=== PATIENT | male | born 1995 | race Caucasian/White ===

== ENCOUNTER 2024-07-24 13:33 | Outpatient (OUT) | payer OTHER, SELFPAY ==
[2024-07-24 13:58] LABS: Basophils Absolute Auto 0.1 10^3/uL (0.0-0.1); Basophils Percent Auto 0.9 % (0.2-2.0); Eosinophils Absolute Auto 0.1 10^3/uL (0.0-0.7); Eosinophils Percent Auto 1.3 % (0.9-7.0); Hematocrit 45.9 % (42.0-54.0); Hemoglobin 15.9 g/dL (14.0-18.0); Immature Granulocytes Abs Auto 0.02 10^3/uL (0.00-0.03); Immature Granulocytes Pct Auto 0.2 % (0.0-0.5); Lymphocytes Absolute Auto 3.1 10^3/uL (1.2-3.8); Lymphocytes Percent Auto 37.7 % (20.5-60.0); Mean Corpuscular HGB Conc 34.6 g/dL (29.9-35.2); Mean Corpuscular Hemoglobin 30.2 pg (25.9-34.0); Mean Corpuscular Volume 87.1 fL (80.0-94.0); Mean Platelet Volume 8.6 fL (9.5-13.5); Monocytes Absolute Auto 0.8 10^3/uL (0.3-0.8); Monocytes Percent Auto 9.9 % (1.7-12.0); Neutrophils Absolute Auto 4.1 10^3/uL (1.4-6.5); Platelet Count 307 10^3/uL (150-450); Red Blood Count 5.27 10^6/uL (4.70-6.10); Red Cell Distribution Width 11.9 % (11.0-15.0); White Blood Count 8.2 10^3/uL (4.0-11.0)
[2024-07-24 14:06] LABS: Erythrocyte Sedimentation Rate 24 mm/hr (<=15)
[2024-07-24 14:12] LABS: Alanine Aminotransferase 81 U/L (16-63); Albumin Globulin Ratio 1.2; Albumin Level 4.3 g/dL (3.4-5.0); Alkaline Phosphatase 54 U/L (46-116); Anion Gap 12.2; Aspartate Amino Transferase 34 U/L (15-37); BUN Creatinine Ratio 16.2; Bilirubin Total 0.6 mg/dL (0.2-1.0); Calcium 9.5 mg/dL (8.5-10.1); Carbon Dioxide 28.3 mmol/L (21.0-32.0); Chloride 103 mmol/L (98-107); Estimated GFR (African America >60 (>=60 mL/min/1.73m^2); Estimated GFR (Non-African Ame >60 (>=60 mL/min/1.73m^2); Globulin 3.7 g/dL; Glucose 84 mg/dL (74-106); Potassium 4.5 mmol/L (3.5-5.1); Sodium 139 mmol/L (136-145)
== END 2024-07-24 13:34 | disposition home or self-care (01) ==
LOC: LAB 13:41
PROVIDERS: PCP Nurse Practitioner; Visit Provider Internal Medicine Rheumatology
DX: M06.9 Rheumatoid arthritis, unspecified (principal); Z51.81 Encounter for therapeutic drug level monitoring
CPT/HCPCS: 36415; 80053; 85025; 85652

== ENCOUNTER 2024-11-22 10:21 | Outpatient (OUT) | payer OTHER, SELFPAY ==
--- OUTSIDE RECORDS SUMMARY | 2024-11-22 10:24 | XMS_ITS | CCD ---
Author Organization [facility] Care Team Providers Care Irrigator Valve Pipe Name Role Phone ARELY MAYEN Attending Unavailable ARELY MAYEN Consulting Unavailable ARELY MAYEN Admitting Unavailable STEFAN WALTON Primary Care Physician [phone] STEFAN WALTON Attending Unavailable STEFAN WALTON Admitting Unavailable STEFAN WALTON Admitting Unavailable STEFAN WALTON Attending Unavailable STEFAN WALTON Attending Unavailable MD Arnold Yates Attending Provider [facility] Stefan Davey Primary Care Provider Stefan Walton Primary Care Unavailable Arnold Yates Attending Unavailable Arnold Yates Admitting Unavailable Allergies Allergy Classification Reported Allergen(s) Allergy Type Date of Onset Reaction(s) Facility (1 source) Latex Drug allergy (disorder) 4 [facility] Repository (1 source) No Known Medication Allergies; Translations: [No Known Medication Allergies] Propensity to adverse reactions (disorder) [facility] Repository Problems Problem Classification Problem Date Documented Da te Episodic/Chronic Immunizations and screening for infectious disease (5 sources) Contact with and (suspected) exposure to other viral communicable diseases; Translations: [Raised antibody titer] Onset: 06-15-2020 Episodic Other nutritional; endocrine; and metabolic disorders (1 source) Body mass index 40+ - severely obese 11-20-2023 Chronic Results Test Name Value Interpretation Reference Range Facility [facility] Antinuclear Antibodieson 01-10-2024 Antinuclear Abs, IFA Positive Critically abnormal . [facility] Comment on above: Result Comment: Nega tive <1:80 Borderline 1:80 Positive >1:80 Performed By: #### T SH3, CBC, URIC, CK, CMP, ADDONUAPLUS, ESR, CRP, T4F #### [facility] [address] [place] [address] [place] #### RIMMA, RPR W RFX, THYGLOB AB, TPO #### [facility] , Homogeneous Pattern 1:80 Normal . [facility] Comment on above: Result Comment: ICAP nomenclature: [id number] Performed By: #### T SH3, CBC, URIC, CK, CMP, ADDONUAPLUS, ESR, CRP, T4F #### [facility] [address] #### RIMMA, RPR W RFX, THYGLOB AB, TPO #### [facility] , Note 1 Comment Normal . [facility] Comment on above: Result Comment: Delisa monahan Potential Disease Association Homogeneous Systemic Lupus Erythematosus, Drug Induced Systemic Lupus Erythematosus, Chronic Autoimmune hepatitis, Juvenile Idiopathic Arthritis Speckled Sjogren Syndrome, Systemic Lupus Erythematosus, Subacute Cutaneous Lupus, Lupus, Congenital Heart Block, Mixed Connective Tissue Disease, Scleroderma-diffuse, Scleroderma-Autoimmune Myositis Overlap Syndrome, Systemic Lupus Jvjtetqjlhevp-Vrwnugdhtws-Ovbvocqxkv Myositis Overlap Syndrome, Systemic Autoimmune Rheumatic Disease, Undifferentiated Connective Tissue Disease Nucleolar Systemic Sclerosis, Scleroderma-Autoimmune Myositis Overlap Syndrome, Sjogren Syndrome, Raynaud phenomenon, Pulmonary Arterial Hypertension, Systemic Autoimmune Rheumatic Disease, Cancer Centromere Scleroderma-CREST, Limited Cutaneous SSc, Raynaud's Phenomenon, Primary Biliary Cholangitis Nuclear Dot Primary Biliary Cholangitis Nuclear Primary Biliary Cholangitis, Autoimmune Membrane Hepatitis/Liver disease, Systemic Autoimmune Rheumatic Disease, Autoimmune Cytopenias, Linear Scleroderma, Antiphospholipid Syndrome Performed at: - [facility] [address] [id number] It Operations Specialist: Alejandro Etienne PhD, Phone: [phone] Performed By: #### T SH3, CBC, URIC, CK, CMP, ADDONUAPLUS, ESR, CRP, T4F #### [facility] [address] #### RIMMA, RPR W RFX, THYGLOB AB, TPO #### [facility] , Alanine aminotransferase [En zymatic activity/volume] in Serum or PlasmaOrdered By: Arnold Yates on 01-10-2024 ALT [Catalytic activity/Vol] 43 U/L Normal 7-52 [facility] Comment on above: Performed By: #### T SH3, CBC, URIC, CK, CMP, ADDONUAPLUS, ESR, CRP, T4F #### [facility] [address] [place] [address] [place] #### RIMMA, RPR W RFX, THYGLOB AB, TPO #### [facility] , Albumin [Mass/volume] in Ser um or Plasma by Bromocresol green (BCG) dye binding methoOrdered By: Arnold Yates on 01-10-2024 Albumin BCG dye [Mass/Vol] 4.7 g/dL 3.5-5.7 [facility] Alkaline phosphatase [Enzyma tic activity/volume] in Serum or PlasmaOrdered By: Arnold Yates on 01-10-2024 ALP [Catalytic activity/Vol] 39 U/L Normal 34-104 [facility] Comment on above: Performed By: #### T SH3, CBC, URIC, CK, CMP, ADDONUAPLUS, ESR, CRP, T4F #### [facility] [address] [place] [address] #### RIMMA, RPR W RFX, THYGLOB AB, TPO #### [facility] , Antithyroglobulin Abon 01-09 Antithyroglobulin Ab <1.0 Normal 0.0-0.9 [facility] Comment on above: Result Comment: Thyr oglobulin Antibody measured by [employer] Method[employer] It should be noted that the presence of thyroglobulin antibodies may not be pathogenic nor diagnostic, especially at very low levels. The assay telecom field technician has found that four percent of individuals without evidence of thyroid disease or autoimmunity will have positive TgAb levels up to 4 IU/mL. Performed at: [address] [id number] It Operations Specialist: Alejandro Etienne PhD, Phone: [phone] Performed By: #### T SH3, CBC, URIC, CK, CMP, ADDONUAPLUS, ESR, CRP, T4F #### [facility] [address] [place] [address] [place] #### RIMMA, RPR W RFX, THYGLOB AB, TPO #### [facility] , Aspartate aminotransferase [ Enzymatic activity/volume] in Serum or PlasmaOrdered By: Arnold Yates on 01-10-2024 AST [Catalytic activity/Vol] 23 U/L Normal 13-39 [facility] Comment on above: Performed By: #### T SH3, CBC, URIC, CK, CMP, ADDONUAPLUS, ESR, CRP, T4F #### [facility] [address] [place] [address] #### RIMMA, RPR W RFX, THYGLOB AB, TPO #### [facility] , Automated basophil %Ordered By: Arnold Yates on 01-10-2024 Basophils/100 WBC (Bld) 0.7 % Normal . [facility] Comment on above: Performed By: #### T SH3, CBC, URIC, CK, CMP, ADDONUAPLUS, ESR, CRP, T4F #### [facility] [address] [place] [address] #### RIMMA, RPR W RFX, THYGLOB AB, TPO #### [facility] , Automated basophil countOrde red By: Arnold Yates on 01-10-2024 Basophils (Bld) [#/Vol] 0.1 10*3/uL Normal 0.0-0.2 [facility] Comment on above: Performed By: #### T SH3, CBC, URIC, CK, CMP, ADDONUAPLUS, ESR, CRP, T4F #### [facility] [address] [place] [address] #### RIMMA, RPR W RFX, THYGLOB AB, TPO #### [facility] , Automated blood monocyte cou ntOrdered By: Arnold Yates on 01-10-2024 Monocytes (Bld) [#/Vol] 0.8 10*3/uL Normal 0.0-0.8 [facility] Comment on above: Performed By: #### T SH3, CBC, URIC, CK, CMP, ADDONUAPLUS, ESR, CRP, T4F #### [facility] [address] [place] [address] #### RIMMA, RPR W RFX, THYGLOB AB, TPO #### [facility] , Automated eosinophil %Ordere d By: Arnold Yates on 01-10-2024 Eosinophils/100 WBC (Bld) 1.0 % Normal . [facility] Comment on above: Performed By: #### T SH3, CBC, URIC, CK, CMP, ADDONUAPLUS, ESR, CRP, T4F #### [address] #### RIMMA, RPR W RFX, THYGLOB AB, TPO #### [facility] , Automated eosinophil countOr dered By: Arnold Yates on 01-10-2024 Eosinophils (Bld) [#/Vol] 0.1 10*3/uL Normal 0.0-0.45 [facility] Comment on above: Performed By: #### T SH3, CBC, URIC, CK, CMP, ADDONUAPLUS, ESR, CRP, T4F #### [address] #### RIMMA, RPR W RFX, THYGLOB AB, TPO #### [facility] , Automated monocyte %Ordered By: Arnold Yates on 01-10-2024 Monocytes/100 WBC (Bld) 10.5 % Normal . [facility] Comment on above: Performed By: #### T SH3, CBC, URIC, CK, CMP, ADDONUAPLUS, ESR, CRP, T4F #### [place] [address] [place] #### RIMMA, RPR W RFX, THYGLOB AB, TPO #### [facility] , Automated neutrophil %Ordere d By: Arnold Yates on 01-10-2024 Neutrophils/100 WBC (Bld) 59.1 % Normal . [facility] Comment on above: Performed By: #### T SH3, CBC, URIC, CK, CMP, ADDONUAPLUS, ESR, CRP, T4F #### [address] #### RIMMA, RPR W RFX, THYGLOB AB, TPO #### [facility] , Bacteria [Presence] in Urine by AutomatedOrdered By: Arnold Yates on 01-10-2024 Bacteria Auto Ql (U) None seen [HPF] None Seen [facility] Bilirubin Test strip Ql (U)O rdered By: Arnold Yates on 01-10-2024 Bilirubin Ql (U) Negative Negative [facility] Bilirubin.total [Mass/volume ] in Serum or PlasmaOrdered By: Arnold Yates on 01-10-2024 Bilirubin [Mass/Vol] 0.7 mg/dL Normal 0.3-1.0 [facility] Comment on above: Performed By: #### T SH3, CBC, URIC, CK, CMP, ADDONUAPLUS, ESR, CRP, T4F #### [facility] [address] [place] [address] [place] #### RIMMA, RPR W RFX, THYGLOB AB, TPO #### [facility] , C reactive protein [Mass/vol ume] in Serum or PlasmaOrdered By: Arnold Urrutiarow on 01-10-2024 CRP [Mass/Vol] 1.5 mg/dL High 0.0-0.5 [facility] C-Reactive Proteinon 024 C-Reactive Protein 1.5 mg/dL High 0.0-0.5 [facility] Comment on above: Performed By: #### T SH3, CBC, URIC, CK, CMP, ADDONUAPLUS, ESR, CRP, T4F #### [facility] [address] [place] [address] [place] #### RIMMA, RPR W RFX, THYGLOB AB, TPO #### [facility] , Calcium [Mass/volume] in Ser um or PlasmaOrdered By: Arnold Trudy on 01-10-2024 Calcium [Mass/Vol] 10.4 mg/dL High 8.6-10.3 [facility] Comment on above: Performed By: #### T SH3, CBC, URIC, CK, CMP, ADDONUAPLUS, ESR, CRP, T4F #### [facility] [address] [place] [address] [place] #### RIMMA, RPR W RFX, THYGLOB AB, TPO #### [facility] , Carbon dioxide, total [Moles /volume] in Serum or PlasmaOrdered By: Arnold Yates on 01-10-2024 CO2 [Moles/Vol] 27.0 mmol/L Normal 21.0-31.0 [facility] Comment on above: Performed By: #### T SH3, CBC, URIC, CK, CMP, ADDONUAPLUS, ESR, CRP, T4F #### [facility] [address] #### RIMMA, RPR W RFX, THYGLOB AB, TPO #### [facility] , Chloride [Moles/volume] in S scott or PlasmaOrdered By: Arnold Urrutiarow on 01-10-2024 Chloride [Moles/Vol] 104 mmol/L Normal 98-107 [facility] Comment on above: Performed By: #### T SH3, CBC, URIC, CK, CMP, ADDONUAPLUS, ESR, CRP, T4F #### [facility] [address] [place] [address] #### RIMMA, RPR W RFX, THYGLOB AB, TPO #### [facility] , Color of Urine by AutoOrdere d By: Arnold Urrutiarow on 01-10-2024 Color (U) Light-yellow Normal Yellow [facility] Comment on above: Order Comment: Name Collection Type:: Clean-Voided Midstream Performed By: #### T SH3, CBC, URIC, CK, CMP, ADDONUAPLUS, ESR, CRP, T4F #### [facility] [address] [place] [address] [place] #### RIMMA, RPR W RFX, THYGLOB AB, TPO #### [facility] , Complete Blood Count Auto Di ffon 01-10-2024 Mean Corpuscular HGB Conc 34.4 g/dL Normal 32.5-35.6 [facility] Comment on above: Performed By: #### T SH3, CBC, URIC, CK, CMP, ADDONUAPLUS, ESR, CRP, T4F #### [place] [address] [place] #### RIMMA, RPR W RFX, THYGLOB AB, TPO #### [facility] , NRBC% 0.3 /100{WBC} Normal 0-0.5 [facility] Comment on above: Performed By: #### T SH3, CBC, URIC, CK, CMP, ADDONUAPLUS, ESR, CRP, T4F #### [address] #### RIMMA, RPR W RFX, THYGLOB AB, TPO #### [facility] , Comprehensive Metabolic Pane vidhi 01-10-2024 Albumin [Mass/Vol] 4.7 g/dL Normal 3.5-5.7 [facility] Comment on above: Performed By: #### T SH3, CBC, URIC, CK, CMP, ADDONUAPLUS, ESR, CRP, T4F #### [address] #### RIMMA, RPR W RFX, THYGLOB AB, TPO #### [facility] , GFR/1.73 sq M.predicted MDRD (S/P/Bld) [Vol rate/Area] mL/min/{1.73_m2} Normal [facility] Comment on above: Performed By: #### T SH3, CBC, URIC, CK, CMP, ADDONUAPLUS, ESR, CRP, T4F #### [place] [address] [place] #### RIMMA, RPR W RFX, THYGLOB AB, TPO #### [facility] , Creatine kinase [Enzymatic a ctivity/volume] in Serum or PlasmaOrdered By: Arnold Yates on 01-10-2024 CK [Catalytic activity/Vol] 87 U/L Normal 30-223 [facility] Comment on above: Result Comment: PERF ORMED BY: [place] [address] PATHOLOGIST SCREW EYE ASSEMBLER PRUDENCE SIEGEL M.D. Performed By: #### T SH3, CBC, URIC, CK, CMP, ADDONUAPLUS, ESR, CRP, T4F #### [address] #### RIMMA, RPR W RFX, THYGLOB AB, TPO #### [facility] , Creatinine [Mass/volume] in Serum or PlasmaOrdered By: Arnold Yates on 01-10-2024 Creatinine [Mass/Vol] 0.89 mg/dL Normal 0.70-1.30 [facility] Comment on above: Performed By: #### T SH3, CBC, URIC, CK, CMP, ADDONUAPLUS, ESR, CRP, T4F #### [address] #### RIMMA, RPR W RFX, THYGLOB AB, TPO #### [facility] , Dipstick and Microscopicon 0 01-10-2024 Bacteria,Urine None Seen Normal None Seen [facility] Comment on above: Order Comment: Name Collection Type:: Clean-Voided Midstream Performed By: #### T SH3, CBC, URIC, CK, CMP, ADDONUAPLUS, ESR, CRP, T4F #### [address] #### RIMMA, RPR W RFX, THYGLOB AB, TPO #### [facility] , Bilirubin,Urine Negative Normal Negative [facility] Comment on above: Order Comment: Name Collection Type:: Clean-Voided Midstream Performed By: #### T SH3, CBC, URIC, CK, CMP, ADDONUAPLUS, ESR, CRP, T4F #### [place] [address] [place] #### RIMMA, RPR W RFX, THYGLOB AB, TPO #### [facility] , Glucose Ql (U) Normal Normal Normal [facility] Comment on above: Order Comment: Name Collection Type:: Clean-Voided Midstream Performed By: #### T SH3, CBC, URIC, CK, CMP, ADDONUAPLUS, ESR, CRP, T4F #### [address] #### RIMMA, RPR W RFX, THYGLOB AB, TPO #### [facility] , Hyaline Casts,Urine 0-8 Normal 0-8 [facility] Comment on above: Order Comment: Name Collection Type:: Clean-Voided Midstream Performed By: #### T SH3, CBC, URIC, CK, CMP, ADDONUAPLUS, ESR, CRP, T4F #### [address] #### RIMMA, RPR W RFX, THYGLOB AB, TPO #### [facility] , Mucus,Urine Rare Normal [facility] Comment on above: Order Comment: Name Collection Type:: Clean-Voided Midstream Result Comment: PERF ORMED BY: [place] [address] PATHOLOGIST SCREW EYE ASSEMBLER PRUDENCE SIEGEL M.D. Performed By: #### T SH3, CBC, URIC, CK, CMP, ADDONUAPLUS, ESR, CRP, T4F #### [address] #### RIMMA, RPR W RFX, THYGLOB AB, TPO #### [facility] , Nitrite,Urine Negative Normal Negative [facility] Comment on above: Order Comment: Name Collection Type:: Clean-Voided Midstream Performed By: #### T SH3, CBC, URIC, CK, CMP, ADDONUAPLUS, ESR, CRP, T4F #### [address] #### RIMMA, RPR W RFX, THYGLOB AB, TPO #### [facility] , Occult Blood,Urine Negative Normal Negative [facility] Comment on above: Order Comment: Name Collection Type:: Clean-Voided Midstream Performed By: #### T SH3, CBC, URIC, CK, CMP, ADDONUAPLUS, ESR, CRP, T4F #### [address] #### RIMMA, RPR W RFX, THYGLOB AB, TPO #### [facility] , Protein,Urine Negative Normal Negative [facility] Comment on above: Order Comment: Name Collection Type:: Clean-Voided Midstream Performed By: #### T SH3, CBC, URIC, CK, CMP, ADDONUAPLUS, ESR, CRP, T4F #### [address] #### RIMMA, RPR W RFX, THYGLOB AB, TPO #### [facility] , RBC,Urine 1-2 Normal 0-4 [facility] Comment on above: Order Comment: Name Collection Type:: Clean-Voided Midstream Performed By: #### T SH3, CBC, URIC, CK, CMP, ADDONUAPLUS, ESR, CRP, T4F #### [address] #### RIMMA, RPR W RFX, THYGLOB AB, TPO #### [facility] , Specificy [place],Urine 1.021 Normal 1.001-1.030 [facility] Comment on above: Order Comment: Name Collection Type:: Clean-Voided Midstream Performed By: #### T SH3, CBC, URIC, CK, CMP, ADDONUAPLUS, ESR, CRP, T4F #### [address] #### RIMMA, RPR W RFX, THYGLOB AB, TPO #### [facility] , Squamous Epithelial Cell,Urine 1-2 Normal 0-2 [facility] Comment on above: Order Comment: Name Collection Type:: Clean-Voided Midstream Performed By: #### T SH3, CBC, URIC, CK, CMP, ADDONUAPLUS, ESR, CRP, T4F #### [address] #### RIMMA, RPR W RFX, THYGLOB AB, TPO #### [facility] , Urobilinogen,Urine Normal Normal Normal [facility] Comment on above: Order Comment: Name Collection Type:: Clean-Voided Midstream Performed By: #### T SH3, CBC, URIC, CK, CMP, ADDONUAPLUS, ESR, CRP, T4F #### [place] [address] [place] #### RIMMA, RPR W RFX, THYGLOB AB, TPO #### [facility] , WBC,Urine 5-9 High 0-4 [facility] Comment on above: Order Comment: Name Collection Type:: Clean-Voided Midstream Performed By: #### T SH3, CBC, URIC, CK, CMP, ADDONUAPLUS, ESR, CRP, T4F #### [address] #### RIMMA, RPR W RFX, THYGLOB AB, TPO #### [facility] , Epithelial cells.squamous [# /area] in Urine sediment by Automated countOrdered By: Arnold Yates on 01-10-2024 Epithelial cells.squamous Auto (Urine sed) [#/Area] 1-2 [HPF] 0-2 [facility] Erythrocyte Sedimentation Ra vanesa 01-10-2024 ESR (Bld) [Velocity] 28 mm/h High 0-14 [facility] Comment on above: Result Comment: PERF ORMED BY: [place] [address] PATHOLOGIST SCREW EYE ASSEMBLER PRUDENCE SIEGEL M.D. Performed By: #### T SH3, CBC, URIC, CK, CMP, ADDONUAPLUS, ESR, CRP, T4F #### [place] [address] [place] #### RIMMA, RPR W RFX, THYGLOB AB, TPO #### [facility] , Erythrocyte distribution wid th [Ratio] by Automated countOrdered By: Arnold Yates on 01-10-2024 Erythrocyte distribution width (RBC) [Ratio] 12.3 % Normal 12.0-14.8 [facility] Comment on above: Performed By: #### T SH3, CBC, URIC, CK, CMP, ADDONUAPLUS, ESR, CRP, T4F #### [facility] [address] [place] [address] [place] #### RIMMA, RPR W RFX, THYGLOB AB, TPO #### [facility] , Erythrocyte sedimentation ra te by Photometric methodOrdered By: Arnold Yates on 01-10-2024 ESR Photometric method (Bld) [Velocity] 28 mm/hr High 0-14 [facility] Erythrocytes [#/area] in Uri ne sediment by Automated countOrdered By: Arnold Yates on 01-10-2024 RBC Auto (Urine sed) [#/Area] 1-2 [HPF] 0-4 [facility] Erythrocytes [#/volume] in B lood by Automated countOrdered By: Arnold Yates on 01-10-2024 RBC (Bld) [#/Vol] 5.35 10*6/uL Normal 3.90-5.60 [facility] Comment on above: Performed By: #### T SH3, CBC, URIC, CK, CMP, ADDONUAPLUS, ESR, CRP, T4F #### [facility] [address] [place] [address] [place] #### RIMMA, RPR W RFX, THYGLOB AB, TPO #### [facility] , Glucose [Mass/volume] in Ser um or PlasmaOrdered By: Arnold Yates on 01-10-2024 Glucose [Mass/Vol] 109 mg/dL High 70-100 [facility] Comment on above: ADA recommended refe rence rangeRandom Glucose Reference Range is dependent on time and content of last meal. Glucose of more than 200 mg/dL in a nonstressed, ambulatory subject supports the diagnosis of Diabetes Mellitus. Result Comment: [place] om Glucose Reference Range is dependent on time and content of last meal. Glucose of more than 200 mg/dL in a nonstressed, ambulatory subject supports the diagnosis of Diabetes Mellitus. ADA recommended reference range Performed By: #### T SH3, CBC, URIC, CK, CMP, ADDONUAPLUS, ESR, CRP, T4F #### [address] #### RIMMA, RPR W RFX, THYGLOB AB, TPO #### [facility] , Glucose [Mass/volume] in Uri ne by Test stripOrdered By: Arnold Yates on 01-10-2024 Glucose Test strip (U) [Mass/Vol] Normal mg/dL Normal [facility] Hematocrit [Volume Fraction] of Blood by Automated countOrdered By: Arnold Yates on 01-10-2024 Hematocrit (Bld) [Volume fraction] 45.9 % Normal 38.8-50.0 [facility] Comment on above: Performed By: #### T SH3, CBC, URIC, CK, CMP, ADDONUAPLUS, ESR, CRP, T4F #### [address] #### RIMMA, RPR W RFX, THYGLOB AB, TPO #### [facility] , Hemoglobin Test strip Ql (U) Ordered By: Arnold Yates on 01-10-2024 Hemoglobin Ql (U) Negative Negative [facility] Hemoglobin [Mass/volume] in BloodOrdered By: Arnold Yates on 01-10-2024 Hemoglobin (Bld) [Mass/Vol] 15.8 g/dL Normal 13.0-17.0 [facility] Comment on above: Performed By: #### T SH3, CBC, URIC, CK, CMP, ADDONUAPLUS, ESR, CRP, T4F #### [place] [address] [place] #### RIMMA, RPR W RFX, THYGLOB AB, TPO #### [facility] , Hyaline casts [#/area] in Ur ine sediment by Automated countOrdered By: Arnold Yates on 01-10-2024 Hyaline casts Auto (Urine sed) [#/Area] 0-8 [LPF] 0-8 [facility] Ketones [Presence] in Urine by Test stripOrdered By: Arnold Yates on 01-10-2024 Ketones Ql (U) Negative Normal Negative [facility] Comment on above: Order Comment: Name Collection Type:: Clean-Voided Midstream Performed By: #### T SH3, CBC, URIC, CK, CMP, ADDONUAPLUS, ESR, CRP, T4F #### [facility] [address] [place] [address] #### RIMMA, RPR W RFX, THYGLOB AB, TPO #### [facility] , Leukocyte esterase [Presence ] in Urine by Test stripOrdered By: Arnold Yates on 01-10-2024 Leukocyte esterase Test strip Ql (U) Negative Normal Negative [facility] Comment on above: Order Comment: Name Collection Type:: Clean-Voided Midstream Performed By: #### T SH3, CBC, URIC, CK, CMP, ADDONUAPLUS, ESR, CRP, T4F #### [facility] [address] [place] [address] #### RIMMA, RPR W RFX, THYGLOB AB, TPO #### [facility] , Leukocytes [#/area] in Urine sediment by Automated countOrdered By: Arnold Yates on 01-10-2024 WBC Auto (Urine sed) [#/Area] 5-9 [HPF] High 0-4 [facility] Leukocytes [#/volume] correc jacinto for nucleated erythrocytes in Blood by Automated counOrdered By: Arnold Yates on 01-10-2024 WBC corrected for nucl RBC Auto (Bld) [#/Vol] 8.0 10*3/uL 4.1-10.5 [facility] Leukocytes [#/volume] in Blo od by Automated countOrdered By: Arnold Yates on 01-10-2024 WBC (Bld) [#/Vol] 8.0 10*3/uL Normal 4.1-10.5 [facility] Comment on above: Performed By: #### T SH3, CBC, URIC, CK, CMP, ADDONUAPLUS, ESR, CRP, T4F #### [facility] [address] [place] [address] #### RIMMA, RPR W RFX, THYGLOB AB, TPO #### [facility] , Lymphocytes [#/volume] in Bl ood by Automated countOrdered By: Arnold Yates on 01-10-2024 Lymphocytes (Bld) [#/Vol] 2.3 10*3/uL Normal 1.00-4.8 [facility] Comment on above: Performed By: #### T SH3, CBC, URIC, CK, CMP, ADDONUAPLUS, ESR, CRP, T4F #### [address] #### RIMMA, RPR W RFX, THYGLOB AB, TPO #### [facility] , Lymphocytes/100 leukocytes i n Blood by Automated countOrdered By: Arnold Yates on 01-10-2024 Lymphocytes/100 WBC (Bld) 28.7 % Normal . [facility] Comment on above: Performed By: #### T SH3, CBC, URIC, CK, CMP, ADDONUAPLUS, ESR, CRP, T4F #### [address] #### RIMMA, RPR W RFX, THYGLOB AB, TPO #### [facility] , MCH [Entitic mass] by Automa jacinto countOrdered By: Arnold Yates on 01-10-2024 MCH (RBC) [Entitic mass] 29.5 pg Normal 27.5-35.2 [facility] Comment on above: Performed By: #### T SH3, CBC, URIC, CK, CMP, ADDONUAPLUS, ESR, CRP, T4F #### [address] #### RIMMA, RPR W RFX, THYGLOB AB, TPO #### [facility] , MCHC Auto (RBC) [Mass/Vol]Or dered By: Arnold Yates on 01-10-2024 MCHC (RBC) [Mass/Vol] 34.4 g/dL 32.5-35.6 [facility] MCV [Entitic volume] by Auto mated countOrdered By: Arnold Yates on 01-10-2024 MCV (RBC) [Entitic vol] 85.8 fL Normal 83.5-101 F [facility] Comment on above: Performed By: #### T SH3, CBC, URIC, CK, CMP, ADDONUAPLUS, ESR, CRP, T4F #### [facility] [address] [place] [address] [place] #### RIMMA, RPR W RFX, THYGLOB AB, TPO #### [facility] , Mucus [Presence] in Urine by AutomatedOrdered By: Arnold Yates on 01-10-2024 Mucus Auto Ql (U) Rare [LPF] [facility] Neutrophils [#/volume] in Bl ood by Automated countOrdered By: Arnold Yates on 01-10-2024 Neutrophils (Bld) [#/Vol] 4.7 10*3/uL Normal 1.8-7.7 [facility] Comment on above: Performed By: #### T SH3, CBC, URIC, CK, CMP, ADDONUAPLUS, ESR, CRP, T4F #### [facility] [address] [place] [address] [place] #### RIMMA, RPR W RFX, THYGLOB AB, TPO #### [facility] , Nitrite Test strip Ql (U)Ord ered By: Arnold Yates on 01-10-2024 Nitrite Ql (U) Negative Negative [facility] No Panel InformationOrdered By: Arnold Yates on 01-10-2024 Estimated GFR (CKD-EPI) > 60.0 mL/Min [facility] Creatinine Clearance (Chem N/A [facility] Nucleated erythrocytes [Pres ence] in Blood by Automated countOrdered By: Arnold Yates on 01-10-2024 Nucleated RBC Auto Ql (Bld) 0.3 /100{WBC} 0-0.5 [facility] Platelet mean volume [Entiti c volume] in Blood by Automated countOrdered By: Arnold Yates on 01-10-2024 Platelet mean volume (Bld) [Entitic vol] 6.9 fL Normal 6.6-10.1 [facility] Comment on above: Performed By: #### T SH3, CBC, URIC, CK, CMP, ADDONUAPLUS, ESR, CRP, T4F #### [facility] [address] [place] [address] #### RIMMA, RPR W RFX, THYGLOB AB, TPO #### [facility] , Platelets [#/volume] in Bloo d by Automated countOrdered By: Arnold Yates on 01-10-2024 Platelets (Bld) [#/Vol] 377 10*3/uL Normal 150-450 [facility] Comment on above: Performed By: #### T SH3, CBC, URIC, CK, CMP, ADDONUAPLUS, ESR, CRP, T4F #### [address] #### RIMMA, RPR W RFX, THYGLOB AB, TPO #### [facility] , Potassium [Moles/volume] in Serum or PlasmaOrdered By: Arnold Yates on 01-10-2024 Potassium [Moles/Vol] 3.9 mmol/L Normal 3.5-5.1 [facility] Comment on above: Performed By: #### T SH3, CBC, URIC, CK, CMP, ADDONUAPLUS, ESR, CRP, T4F #### [place] [address] [place] #### RIMMA, RPR W RFX, THYGLOB AB, TPO #### [facility] , Protein Test strip (U) [Mass /Vol]Ordered By: Arnold Yates on 01-10-2024 Protein (U) [Mass/Vol] Negative Negative [facility] Protein [Mass/volume] in Ser um or PlasmaOrdered By: Arnold Yates on 01-10-2024 Protein [Mass/Vol] 8.2 g/dL Normal 6.4-8.9 [facility] Comment on above: Performed By: #### T SH3, CBC, URIC, CK, CMP, ADDONUAPLUS, ESR, CRP, T4F #### [facility] [address] [place] [address] #### RIMMA, RPR W RFX, THYGLOB AB, TPO #### [facility] , RPR w/rfx to Quant TP Abson 01-10-2024 RPR, Rfx Quant RPR Non-Reactive Normal Non Reactive [facility] Comment on above: Result Comment: Perf ormed at: CB - [facility] [address] [id number] It Operations Specialist: Alejandro Etienne PhD, Phone: [phone] PERFORMED BY: [place] [address] PATHOLOGIST SCREW EYE ASSEMBLER PRUDENCE SIEGEL M.D. Performed By: #### T SH3, CBC, URIC, CK, CMP, ADDONUAPLUS, ESR, CRP, T4F #### [facility] [address] [place] [address] #### RIMMA, RPR W RFX, THYGLOB AB, TPO #### [facility] , Serum globulin measurement b y calculation (mass/volume)Ordered By: Arnold Yates on 01-10-2024 Globulin (S) [Mass/Vol] 3.5 g/dL Normal [facility] Comment on above: Performed By: #### T SH3, CBC, URIC, CK, CMP, ADDONUAPLUS, ESR, CRP, T4F #### [facility] [address] [place] [address] #### RIMMA, RPR W RFX, THYGLOB AB, TPO #### [facility] , Serum or plasma albumin/glob ulin mass ratioOrdered By: Arnold Yates on 01-10-2024 Albumin/Globulin [Mass ratio] 1.3 {ratio} Normal [facility] Comment on above: Performed By: #### T SH3, CBC, URIC, CK, CMP, ADDONUAPLUS, ESR, CRP, T4F #### [facility] [address] [place] [address] #### RIMMA, RPR W RFX, THYGLOB AB, TPO #### [facility] , Serum or plasma anion gap de terminationOrdered By: Arnold Yates on 01-10-2024 Anion gap [Moles/Vol] 10.9 mmol/L Normal 6.0-15.0 [facility] Comment on above: Performed By: #### T SH3, CBC, URIC, CK, CMP, ADDONUAPLUS, ESR, CRP, T4F #### [address] #### RIMMA, RPR W RFX, THYGLOB AB, TPO #### [facility] , Sodium [Moles/volume] in Ser um or PlasmaOrdered By: Arnold Yates on 01-10-2024 Sodium [Moles/Vol] 138 mmol/L Normal 136-145 [facility] Comment on above: Performed By: #### T SH3, CBC, URIC, CK, CMP, ADDONUAPLUS, ESR, CRP, T4F #### [address] #### RIMMA, RPR W RFX, THYGLOB AB, TPO #### [facility] , Specific gravity Test strip (U) [Rel density]Ordered By: Arnold Yates on 01-10-2024 Specific gravity (U) [Rel density] 1.021 1.001-1.030 [facility] Thyroid Peroxidase Antibodie son 01-10-2024 Thyroid Peroxidase Antibodies 12 Normal 0-34 [facility] Comment on above: Result Comment: Perf ormed at: CB - [facility] [address] [id number] It Operations Specialist: Alejandro Etienne PhD, Phone: [phone] Performed By: #### T SH3, CBC, URIC, CK, CMP, ADDONUAPLUS, ESR, CRP, T4F #### [address] #### RIMMA, RPR W RFX, THYGLOB AB, TPO #### [facility] , Thyrotropin [Units/volume] i n Serum or PlasmaOrdered By: Arnold Yates on 01-10-2024 TSH Qn 4.09 m[IU]/L Normal 0.45-5.33 [facility] Comment on above: Result Comment: PERF ORMED BY: [place] [address] PATHOLOGIST SCREW EYE ASSEMBLER PRUDENCE SIEGEL M.D. Performed By: #### T SH3, CBC, URIC, CK, CMP, ADDONUAPLUS, ESR, CRP, T4F #### [address] #### RIMMA, RPR W RFX, THYGLOB AB, TPO #### [facility] , Thyroxine (T4) free [Mass/vo lume] in Serum or PlasmaOrdered By: Arnold Yates on 01-10-2024 Free T4 [Mass/Vol] 0.74 ng/dL Normal 0.61-1.12 [facility] Comment on above: Performed By: #### T SH3, CBC, URIC, CK, CMP, ADDONUAPLUS, ESR, CRP, T4F #### [place] [address] [place] #### RIMMA, RPR W RFX, THYGLOB AB, TPO #### [facility] , Urate [Mass/volume] in Serum or PlasmaOrdered By: Arnold Yates on 01-10-2024 Urate [Mass/Vol] 7.7 mg/dL High 4.4-7.6 [facility] Comment on above: Performed By: #### T SH3, CBC, URIC, CK, CMP, ADDONUAPLUS, ESR, CRP, T4F #### [place] [address] [place] #### RIMMA, RPR W RFX, THYGLOB AB, TPO #### [facility] , Urea nitrogen [Mass/volume] in Serum or PlasmaOrdered By: Arnold Yates on 01-10-2024 Urea nitrogen [Mass/Vol] 16 mg/dL Normal 7-25 [facility] Comment on above: Performed By: #### T SH3, CBC, URIC, CK, CMP, ADDONUAPLUS, ESR, CRP, T4F #### [address] #### RIMMA, RPR W RFX, THYGLOB AB, TPO #### [facility] , Urine appearanceOrdered By: Arnold Yates on 01-10-2024 Appearance (U) Clear Normal Clear [facility] Comment on above: Order Comment: Name Collection Type:: Clean-Voided Midstream Performed By: #### T SH3, CBC, URIC, CK, CMP, ADDONUAPLUS, ESR, CRP, T4F #### [address] #### RIMMA, RPR W RFX, THYGLOB AB, TPO #### [facility] , Urobilinogen Test strip (U) [Mass/Vol]Ordered By: Arnold Yates on 01-10-2024 Urobilinogen (U) [Mass/Vol] Normal mg/dL Normal [facility] XR wrist BI 2Von 01-10-2024 XR wrist BI 2V [facility] [address] XRay Report Signed Patient: Arnold Pulliam MR#: [id number] : 1995 Acct:[id number] Age/Sex: 28 / M ADM Date: 01/10/24 Loc: ICXD Room: Type: [facility] Attending Dr: Arnold Yates MD Copies to: Arnold Yates MD Ordering Provider: Arnold Yates MD Date of Service: 01/10/24 XR/XR wrist BI 2V: PAIN ([id number]) XR/XR hand BI 2V: PAIN BILATERAL HAND - 2 views each, bilateral wrist series 2 views each REASON FOR EXAM: Bilateral wrist and hand pain with joint swelling for 8 weeks. COMPARISON: None FINDINGS: Right hand/wrist: No focal soft tissue abnormality. Joint spaces of the hand and wrist appear maintained without bony erosions. No acute bony process. Left hand/wrist: No focal soft tissue abnormality. Joint spaces of the hand and wrist appear maintained without bony erosions. No acute bony process. XR/XR hand BI 2V IMPRESSION: NO ACUTE BONY PROCESS. Impression dictated by: Danny Baker Jr., D.O.01/10/2024 2:17 PM Dictation Location: [place] [address] Transcribed By: [facility] 01/10/24 1417 Dictated By: Danny Baker Jr, DO 01/10/24 1416 Signed By: 01/10/24 1417 Normal [facility] pH of Urine by Test stripOrd ered By: Arnold Yates on 01-10-2024 pH (U) 6.0 [pH] Normal 5.0-9.0 [facility] Comment on above: Order Comment: Name Collection Type:: Clean-Voided Midstream Performed By: #### T SH3, CBC, URIC, CK, CMP, ADDONUAPLUS, ESR, CRP, T4F #### [facility] [address] [place] [address] #### RIMMA, RPR W RFX, THYGLOB AB, TPO #### [facility] , Physician Referralon 024 Physician Referral [id number] Normal [facility] RIMMA w/Reflex if POSon 2023 Nuclear Ab Ql (S) Negative Invalid Interpretation Code Negative [facility] Comment on above: Result Comment: Perf ormed at: CB [facility] [address] [id number] PhD Jaimie Allen Performed By: #### 1 [id number] #### [facility] [address] [place] [address] RF Quanton 11-22-2023 Rheumatoid factor Qn 21.6 International_Unit/ mL High <14.0 [facility] Comment on above: Result Comment: Perf ormed at: [facility] [address] [id number] PhD Cherriegerald Alejandro Performed By: #### 1 [id number] #### [facility] [address] [place] [address] Ambulatory Visit Summaryon 0 11-20-2023 Ambulatory Visit Summary ARNOLD PULLIAM :1995 Visit Date:11/20/2023 Ambulatory Visit Instructions Your Diagnosis Pain in joints Encounter to establish care BMI 45.0-49.9, adult Your Care Team Attending Physician - STEFAN WALTON CNP Primary Care Physician - STEFAN WALTON CNP Discharge Vitals Temperature (Temporal Artery) 36.7 ?C Heart Rate (Peripheral) 87 Respiratory Rate 15 Blood Pressure 118/75 Height 182 cm Height 72 in Weight 160 kg Weight 352 lb BMI 48.3 Allergies No Known Allergies No Known Medication Allergies Problems Ongoing - Any problem that you are currently receiving treatment for. BMI 45.0-49.9, adult Patient Survey You may receive a survey via text or e-mail asking about your office visit. Please share your experience with us by completing your survey. We appreciate your feedback and thank you for choosing us for your care. Normal [facility] CBC w/ Auto Diffon 4 Basophils/100 WBC (Bld) 0.5 % Normal 0.0-2.0 F [facility] Comment on above: Performed By: #### 2 [id number] #### [facility] [address] [place] [address] Basophils/Leukocytes Auto (Bld) [Pure # fraction] 0.0 E9/L Normal 0.0-0.2 [facility] Comment on above: Performed By: #### 2 [id number] #### [facility] [address] [place] [address] Eosinophils (Bld) [#/Vol] 0.1 E9/L Normal 0.0-0.5 [facility] Comment on above: Performed By: #### 2 [id number] #### [facility] [address] [place] [address] Eosinophils/100 WBC (Bld) 1.3 % Normal 0.0-8.0 [facility] Comment on above: Performed By: #### 2 [id number] #### [facility] [address] [place] [address] Erythrocyte distribution width (RBC) [Ratio] 12.7 % Normal 10.9-14.2 [facility] Comment on above: Performed By: #### 2 [id number] #### [facility] [address] [place] [address] Hematocrit (Bld) [Volume fraction] 47.6 % Normal 37.7-49.0 [facility] Comment on above: Performed By: #### 2 [id number] #### [facility] [address] [place] [address] Hemoglobin (Bld) [Mass/Vol] 16.6 g/dL Normal 13.5-17.5 [facility] Comment on above: Performed By: #### 2 [id number] #### [facility] [address] [place] [address] Lymphocytes (Bld) [#/Vol] 3.0 E9/L Normal 1.0-4.0 [facility] Comment on above: Performed By: #### 2 736441 #### [facility] [address] [place] [address] Lymphocytes/100 WBC (Bld) 36.9 % Normal 14.0-50.0 [facility] Comment on above: Performed By: #### 2 758667 #### [facility] [address] [place] [address] MCH (RBC) [Entitic mass] 30.8 pg Normal 27.0-34.0 [facility] Comment on above: Performed By: #### 2 681774 #### [facility] [address] [place] [address] MCHC (RBC) [Mass/Vol] 34.9 g/dL Normal 31.4-36.0 [facility] Comment on above: Performed By: #### 2 844348 #### [facility] [address] [place] [address] MCV (RBC) [Entitic vol] 88.2 fL Normal 80.0-100.0 F [facility] Comment on above: Performed By: #### 2 210371 #### [facility] [address] [place] [address] Monocytes (Bld) [#/Vol] 0.8 E9/L Normal 0.2-1.0 F [facility] Comment on above: Performed By: #### 2 466977 #### [facility] [address] [place] [address] Neutrophils (Bld) [#/Vol] 4.2 E9/L Normal 2.0-7.5 [facility] Comment on above: Performed By: #### 2 139619 #### [facility] [address] [place] [address] Neutrophils/100 WBC (Bld) 51.2 % Normal 36.0-75.0 [facility] Comment on above: Performed By: #### 2 072401 #### [facility] [address] [place] [address] Platelet 349.0 E9/L Normal 150.0-500.0 [facility] Comment on above: Performed By: #### 2 967757 #### [facility] [address] [place] [address] Platelet mean volume (Bld) [Entitic vol] 7.5 fL Normal 6.4-10.8 [facility] Comment on above: Performed By: #### 2 467090 #### [facility] [address] [place] [address] RBC (Bld) [#/Vol] 5.4 E12/L Normal 4.3-5.9 [facility] Comment on above: Performed By: #### 2 [id number] #### [facility] [address] [place] [address] WBC corrected for nucl RBC Auto (Bld) [#/Vol] 8.2 E9/L Normal 4.0-11.0 [facility] Comment on above: Performed By: #### 2 [id number] #### [facility] [address] [place] [address] CHEMISTRYOrdered By: SYSTEM SYSTEM on 11-20-2023 Albumin [Mass/Vol] 4.7 g/dL Normal 3.3 - 5.0 gm/dL [facility] Albumin/Globulin [Mass ratio] 1.3 {ratio} Normal 1.1 - 2.2 [facility] ALP [Catalytic activity/Vol] 43 [iU]/d Normal 21 - 98 Int._Unit/L [facility] ALT No additional P-5'-P [Catalytic activity/Vol] 45 [iU]/d Normal 6 - 46 Int._Unit/L [facility] Anion gap [Moles/Vol] 15 mmol/L Normal 6 - 16 mEq/L R em[facility] Chem AST [Catalytic activity/Vol] 24 [iU]/d Normal 5 - 43 Int._Unit/L [facility] Bilirubin [Mass/Vol] 0.8 mg/dL Normal 0.0 - 1 .1 mg/dL [facility] Calcium [Mass/Vol] 9.9 mg/dL Normal 8.9 - 11. 1 mg/dL [facility] Chloride [Moles/Vol] 104 mmol/L Normal 101 - 1 11 mmol/L [facility] CO2 [Moles/Vol] 24 mmol/L Normal 21 - 31 mmol/L [facility] Creatinine [Mass/Vol] 0.9 mg/dL Normal 0.5 - 1.3 mg/dL [facility] CRP [Mass/Vol] 1.6 mg/dL Normal <=1.9mg/dL [facility] em eGFR 119 mL/min/1.73 m2 Normal >=59mL/mi n/1 .73 m2 [facility] Free T4 [Mass/Vol] 0.72 ng/dL Normal 0.58 - 1. 64 ng/dL [facility] Globulin (S) [Mass/Vol] 3.5 g/dL Normal 1.4 - 4.0 gm/dL [facility] Glucose [Mass/Vol] 82 mg/dL Normal 55 - 199 mg/dL [facility] Potassium [Moles/Vol] 3.9 mmol/L Normal 3.5 - 5.3 mmol/L [facility] Protein [Mass/Vol] 8.2 g/dL High 6.0 - 7.8 gm/dL [facility] Sodium [Moles/Vol] 139 mmol/L Normal 135 - 145 mmol/L [facility] TSH Qn 5.88 m[IU]/L High 0.34 - 5.60 mcIU/mL [facility] Urea nitrogen [Mass/Vol] 15 mg/dL Normal 5 - 21 mg/d L [facility] Urea nitrogen/Creatinine [Mass ratio] 17 mg/mg Normal 10 - 20 [facility] CMPon 11-20-2023 Albumin [Mass/Vol] 4.7 g/dL Normal 3.3-5.0 [facility] Comment on above: Performed By: #### 2 [id number] #### [facility] [address] [place] [address] Albumin/Globulin (S) [Mass conc ratio] 1.3 Normal 1.1-2.2 [facility] Comment on above: Performed By: #### 2 [id number] #### [facility] [address] [place] [address] ALP [Catalytic activity/Vol] 43 Int._Unit/L Normal 21-98 [facility] Comment on above: Performed By: #### 2 [id number] #### [facility] [address] [place] [address] ALT No additional P-5'-P [Catalytic activity/Vol] 45 Int._Unit/L Normal 6-46 [facility] Comment on above: Performed By: #### 2 045557 #### [facility] [address] [place] [address] Anion gap [Moles/Vol] 15 mmol/L Normal 6-16 [facility] Comment on above: Performed By: #### 2 676534 #### [facility] [address] [place] [address] AST [Catalytic activity/Vol] 24 Int._Unit/L Normal 5-43 [facility] Comment on above: Performed By: #### 2 127697 #### [facility] [address] [place] [address] Bilirubin [Mass/Vol] 0.8 mg/dL Normal 0.0-1.1 [facility] Comment on above: Performed By: #### 2 016078 #### [facility] [address] [place] [address] Calcium [Mass/Vol] 9.9 mg/dL Normal 8.9-11.1 [facility] Comment on above: Performed By: #### 2 778319 #### [facility] [address] [place] [address] Chloride [Moles/Vol] 104 mmol/L Normal 101-111 [facility] Comment on above: Performed By: #### 2 861049 #### [facility] [address] [place] [address] CO2 [Moles/Vol] 24 mmol/L Normal 21-31 [facility] Comment on above: Performed By: #### 2 672224 #### [facility] [address] [place] [address] Creatinine [Mass/Vol] 0.9 mg/dL Normal 0.5-1.3 [facility] Comment on above: Performed By: #### 2 249982 #### [facility] [address] [place] [address] Globulin (S) [Mass/Vol] 3.5 g/dL Normal 1.4-4.0 F [facility] Comment on above: Performed By: #### 2 [id number] #### [facility] [address] [place] [address] Glucose [Mass/Vol] 82 mg/dL Normal 55-199 [facility] Comment on above: Performed By: #### 2 908865 #### [facility] [address] [place] [address] Potassium [Moles/Vol] 3.9 mmol/L Normal 3.5-5.3 [facility] Comment on above: Performed By: #### 2 536016 #### [facility] [address] [place] [address] Protein [Mass/Vol] 8.2 g/dL High 6.0-7.8 [facility] Comment on above: Performed By: #### 2 738813 #### [facility] [address] [place] [address] Sodium [Moles/Vol] 139 mmol/L Normal 135-145 [facility] Comment on above: Performed By: #### 2 848915 #### [facility] [address] [place] [address] Urea nitrogen [Mass/Vol] 15 mg/dL Normal 5-21 [facility] Comment on above: Performed By: #### 2 102811 #### [facility] [address] [place] [address] Urea nitrogen/Creatinine [Mass ratio] 17 No Units Normal 10-20 [facility] Comment on above: Performed By: #### 2 853072 #### [facility] [address] [place] [address] CRPon 11-20-2023 CRP [Mass/Vol] 1.6 mg/dL Normal <=1.9 [facility] Comment on above: Performed By: #### 2 [id number] #### [facility] [address] [place] [address] Family Medicine Office/Clini c Noteon 11-20-2023 Family Medicine Office/Clinic Note HPI Staff Arnold is a 28 year old male presenting to establish care Establish Care: History: Any previous diagnosis: History of seeing any specialist: no When was your last doctors visit: 4 years ago Last provider: Dr Mayen Any recent labs: due Health Maintenance UTD: Colonoscopy: PSA: Acute: Current issues/complaints: today having issues with flair ups with swelling that moves from joint to joint hip , knee ankles and shoulder and wrist today is it in right wrist and is about a 6/10 also gets a rash while he is having flair ups comes and goes had the rash for like 3 weeks 5 to 6 weeks has been dealing with this flair up issue states felt like every week was new issue History of Present Illness 28 year old patient presents today to establish care. He reports he has been experiencing a great deal of joint swelling and pain. He reports the edema and pain is not localized and it started with his left hip a couple weeks back and then in his left shoulder and now in his right wrist. He reports he has tried OTC ibuprofen but that really hasn't help much. He has been using a compression wrap for the right wrist and a corn bag that he freezes on the wrist because the coldness is better than heat. He states no one is his family has had anything like this and he is not sure what is going on. Review of Systems PHQ Score Initial Depression Screen Score: 0 SCORE Constitutional: no fever, no chills, no sweats, no weakness Skin: no Jaundice, no rash, no lesions, nopetechiae ENMT: no ear pain, no sore throat, no congestion, no hoarseness Respiratory: no shortness of breath, no cough, no orthopnea, no wheezing Cardiovascular: no chest pain, no palpitations, no edema Gastrointestinal: no nausea, no vomiting, no diarrhea, no GI bleeding Genitourinary: no dysuria, no hematuria, no discharge, no pain Musculoskeletal: no back pain, no trauma Neurologic: no headache, no dizziness, no numbness, no weakness Psychiatric: no sleeping problems, no irritability, no mood swings/depression. Heme/Lymph: no bleeding tendency, no bruising tendency, no petechiae, no swollen nodes Allergy/Immunologic : no seasonal allergies, no food allergies, no recurrent infections, no impaired immunity Additional ROS info: Except as noted in the above Review of Systems and in the History of Present Illness all other systems have been reviewed and are negative or noncontributory. Physical Exam Vitals & Measurements T: 36.7 ?C(Temporal Artery) HR: 87(Peripheral) RR: 15 BP: 118/75 SpO2: 98% HT: 72 in HT: 182 cm WT: 160 kg WT: 352 lb BMI: 48.3 General: alert, no acute distress Skin: warm, dry Head: no trauma, normocephalic Neck: Trachea midline, no adenopathy, no tenderness Eye: normal conjunctiva, sclera clear ENMT: TM's clear, oral mucosa moist, no pharyngeal erythema or exudate Cardiovascular: regular rate and rhythm, normal peripheral perfusion Respiratory: Lungs CTA, respirations non labored Chest wall: no deformity. Gastrointestinal: soft, non distended, no tenderness, no guarding. Back: No tenderness, Normal ROM, Normal alignment. Extremities: no deformity, no trauma, normal ROM to both wrist- mild edema to the right wrist Neurological: oriented x 4, LOC appropriate for age, CN II-XII intact, motor strength equal & normal bilaterally, sensation equal & normal bilaterally, speech normal Psychiatric: cooperative, affect appropriate for age, normal judgement, normal psychiatric thoughts. Assessment/Plan 1. Pain in joints (M25.50: Pain in unspecified joint) Encouraged to take OTC acetaminophen and ibuprofen May alternate with ice or heat for discomfort Continue compression sock to the right wrist Awaiting laboratory values f/u in 2 weeks Ordered: RIMMA w/Reflex if POS C-Reactive Protein CBC w/ Auto Diff Comprehensive Metabolic Panel Lab Specimen Collect 78710 Rheumatoid Factor Quantitative Sedimentation Rate Automated TSH With T4fr Reflex Uric Acid 2. Encounter to establish care (Z76.89: Persons encountering health services in other specified circumstances) Ordered: Lab Specimen Collect 00510 3. BMI 45.0-49.9, adult (Z68.42: Body mass index [BMI] 45.0-49.9, adult) The standard range for ages 18 and older is >=18.5 and < 25 kg/m2. Your BMI today was above this range, this falls in the overweight to obese category and there are medical benefits to weight loss. We can offer counselling, referral, and/or medical support in addressing this problem. Your BMI and weight management will be followed at subsequent visits. Ordered: RIMMA w/Reflex if POS C-Reactive Protein CBC w/ Auto Diff Comprehensive Metabolic Panel Lab Specimen Collect 211[address] Rheumatoid Factor Quantitative Sedimentation Rate Automated TSH With T4fr Reflex Follow-up With When Contact Information STEFAN WALTON CNP, FAM Within [address] [place] [phone] Business (1) Additional Instructions (more content not included)... Normal [facility] Comment on above: Result Comment: Elec tronically Signed By: STEFAN WALTON CNP\.br\Date and Time Signed: 11/20/23 13:51 EDT Free T4on 11-20-2023 Free T4 [Mass/Vol] 0.72 ng/dL Normal 0.58-1.64 [facility] Comment on above: Performed By: #### 2 [id number] #### [facility] [address] [place] [address] HEMATOLOGYOrdered By: SYSTEM SYSTEM on 11-20-2023 Basophils/100 WBC (Bld) 0.5 % Normal 0.0 - 2.0 % Remisol Heme Basophils/Leukocytes Auto (Bld) [Pure # fraction] 0.0 E9/L Normal 0.0 - 0.2 E9/L Remisol Heme Eosinophils (Bld) [#/Vol] 0.1 E9/L Normal 0.0 - 0.5 E9/L Remisol Heme Eosinophils/100 WBC (Bld) 1.3 % Normal 0.0 - 8.0 % Remisol Heme Erythrocyte distribution width (RBC) [Ratio] 12.7 % Normal 10.9 - 14.2 % Remisol Heme Hematocrit (Bld) [Volume fraction] 47.6 % Normal 37.7 - 49.0 % Remisol Heme Hemoglobin (Bld) [Mass/Vol] 16.6 g/dL Normal 13.5 - 17.5 gm/dL Remisol Heme Lymphocytes (Bld) [#/Vol] 3.0 E9/L Normal 1.0 - 4.0 E9/L Remisol Heme Lymphocytes/100 WBC (Bld) 36.9 % Normal 14.0 - 50.0 % Remisol Heme MCH (RBC) [Entitic mass] 30.8 pg Normal 27. 0 - 34.0 pg Remisol Heme MCHC (RBC) [Mass/Vol] 34.9 g/dL Normal 31.4 - 36.0 gm/dL Remisol Heme MCV (RBC) [Entitic vol] 88.2 fL Normal 80.0 - 100.0 fL Remisol Heme Monocytes (Bld) [#/Vol] 0.8 E9/L Normal 0.2 - 1.0 E9/L Remisol Heme Monocytes/100 WBC (Bld) 10.1 % Normal 4.0 - 14.0 % Remisol Heme Neutrophils (Bld) [#/Vol] 4.2 E9/L Normal 2.0 - 7.5 E9/L Remisol Heme Neutrophils/100 WBC (Bld) 51.2 % Normal 36.0 - 75.0 % Remisol Heme Platelet 349.0 E9/L Normal 150.0 - 500.0 E9/L Remisol Heme Platelet mean volume (Bld) [Entitic vol] 7.5 fL Normal 6.4 - 10.8 fL Remisol Heme RBC (Bld) [#/Vol] 5.4 E12/L Normal 4.3 - 5.9 E12/L Remisol Heme WBC corrected for nucl RBC Auto (Bld) [#/Vol] 8.2 E9/L Normal 4.0 - 11.0 E9/L Remisol Heme HEMATOLOGYOrdered By: Urmila Dyson on 11-20-2023 ESR (Bld) [Velocity] 14 mm/h Normal 0 - 19 mm/hr FT HemeAutoSS Patient Educationon 11-20-19 Patient Education Orthopedics Joint Pain Joint pain can be caused by many things. It is likely to go away if you follow instructions from your doctor for taking care of yourself at home. Sometimes, you may need more treatment. Follow these instructions at home: Managing pain, stiffness, and swelling ? If told, put ice on the painful area. To do this: ? If you have a removable elastic bandage, sling, or splint, take it off as told by your doctor. ? Put ice in a plastic bag. ? Place a towel between your skin and the bag. ? Leave the ice on for 20 minutes, 2?3 times a day. ? Take off the ice if your skin turns bright red. This is very important. If you cannot feel pain, heat, or cold, you have a greater risk of damage to the area. ? Move your fingers or toes below the painful joint often. ? Raise the painful joint above the level of your heart while you are sitting or lying down. ? If told, put heat on the painful area. Do this as often as told by your doctor. Use the heat source that your doctor recommends, such as a moist heat pack or a heating pad. ? Place a towel between your skin and the heat source. ? Leave the heat on for 20?30 minutes. ? Take off the heat if your skin gets bright red. This is especially important if you are unable to feel pain, heat, or cold. You may have a greater risk of getting burned. Activity ? Rest the painful joint for as long as told by your doctor. Do not do things that cause pain or make your pain worse. ? Begin exercising or stretching the affected area, as told by your doctor. Ask your doctor what types of exercise are safe for you. ? Return to your normal activities when your doctor says that it is safe. If you have an elastic bandage, sling, or splint: ? Wear it as told by your doctor. Take it only as told by your doctor. ? Loosen it your fingers or toes below the joint: ? Tingle. ? Become numb. ? Get cold and blue. ? Keep it clean. ? Ask your doctor if you should take it off before bathing. ? If it is not waterproof: ? Do not let it get wet. ? Cover it with a watertight covering when you take a bath or shower. General instructions ? Take ryye-mpn-edrrtvk and prescription medicines only as told by your doctor. This may include medicines taken by mouth or applied to the skin. ? Do not smoke or use any products that contain nicotine or tobacco. If you need help quitting, ask your doctor. ? Keep all follow-up visits as told by your doctor. This is important. Contact a doctor if: ? You have pain that gets worse and does not get better with medicine. ? Your joint pain does not get better in 3 days. ? You have more bruising or swelling. ? You have a fever. ? You lose 10 lb (4.5 kg) or more without trying. Get help right away if: ? You cannot move the joint. ? Your fingers or toes tingle, become numb. or get cold and blue. ? You have a fever along with a joint that is red, warm, and swollen. Summary ? Joint pain can be caused by many things. It often goes away if you follow instructions from your doctor for taking care of yourself at home. ? Rest the painful joint for as long as told. Do not do things that cause pain or make your pain worse. ? Take wqxi-rts-cujcoxu and prescription medicines only as told by your doctor. This information is not intended to replace advice given to you by your health care provider. Make sure you discuss any questions you have with your health care provider. Document Revised: 09/08/2020 Document Reviewed: 09/08/2020 Elsevier Patient Education ? 2022 [employer] Normal [facility] Sed Rate Automatedon 024 ESR (Bld) [Velocity] 14 mm/h Normal 0-19 Fish er [facility] Comment on above: Performed By: #### 1 [id number] #### [facility] [address] [place] [address] TSH With T4fr Reflexon 11-19 TSH Qn 5.88 m[IU]/L High 0.34-5.60 [facility] Comment on above: Performed By: #### 1 [id number] #### [facility] [address] [place] [address] eGFRon 11-20-2023 eGFR 119 mL/min/1.73 m2 Normal >=59 [facility] Comment on above: Order Comment: Order added by Discern Expert. Performed By: #### 1 [id number] #### [facility] [address] [place] [address] Covid-19 PCR (CVDTBH)on Covid-19 PCR NOT DETECTED Normal NOT DETECTED [facility] Comment on above: Result Comment: This test is not yet approved or cleared by the [place] FDA. When there are no FDA-approved or cleared tests available, and other criteria are met, FDA can make tests available under an emergency access mechanism called an Emergency Use Authorization (EUA). The EUA for this test is supported by the Fondant [employer]er of Health and Human Service's (HHS's) declaration that circumstances exist to justify the emergency use of in vitro diagnostics for the detection and/or diagnosis of the virus that causes COVID-19. This EUA will remain in effect (meaning this test can be used) for the duration of the COVID-19 declaration justifying emergency of IVDs, unless it is terminated or revoked by FDA (after which the test may no longer be used). Performed By: #### C VDTB #### [facility] [address], [place] [address] Jeancarlos Leo EUA Statement SEE BELOW Normal [facility] [place] Comment on above: Result Comment: This test is not yet approved or cleared by the [place] FDA. When there are no FDA-approved or cleared tests available, and other criteria are met, FDA can make tests available under an emergency access mechanism called an Emergency Use Authorization (EUA). The EUA for this test is supported by the [employer] of Health and Human Service?s (HHS?s) declaration that circumstances exist to justify the emergency use of in vitro diagnostics for the detection and/or diagnosis of the virus that causes COVID-19. This EUA will remain in effect (meaning this test can be used) for the duration of the COVID-19 declaration justifying emergency of IVDs, unless it is terminated or revoked by FDA (after which the test may no longer be used). When diagnostic testing is negative, the possibility of a false negative should be considered in the context of a patients recent exposures and the presence of clinical signs and symptoms consistent with SARS-CoV-2. Performed By: #### C VDTBH #### [facility] [address], [place] [address] Jeancarlos Leo Encounters Encounter Date Encounter Type Care Provider Facility Start: 01-10-2024 End: 01-10-2024 Patient encounter procedure [facility] [facility] Stefan Walton Work Phone: [facility] [address] Work Phone: Start: 01-10-2024 End: 01-10-2024 ambulatory [facility] Tsefan A Mandy Work Phone: [facility] Work Phone: Start: 11-20-2023 End: 11-20-2023 Lab Drop off STEFAN A MANDY [facility] Start: 11-20-2023 End: 11-20-2023 ambulatory STEFAN A MANDY Facility:[facility] Start: 11-19-2023 ambulatory STEFAN MANDY Facility :[facility] Start: 06-15-2020 End: 06-15-2020 Patient encounter procedure ARELY MAYEN Facility:[facility] Procedures Date Procedure Procedure Detail Performing Clinician Start: 01-10-2024 Plain X-ray of bilat eral hands [facility] Stefan Mandy Work Phone: Start: 01-10-2024 Plain X-ray of bilat eral wrists [employer] [employer] Stefan Mandy Work Phone: Plan of Treatment Date Care Activity Detail Author Start: 01-10-2024 [facility] Homogenous nuclear A b pattern [Titer] in Serum [facility] Nuclear Ab [Titer] in Serum [facility] Reagin Ab [Presence] in Serum by RPR [facility] Thyroglobulin Ab [Un its/volume] in Serum or Plasma [facility] Thyroperoxidase Ab [ Units/volume] in Serum or Plasma [facility] Immunizations Immunization Date Immunization Notes Care Provider Fa [facility] 10-06-2020 SARS-CoV-2 (COVID-19 ) mRNA BNT-162b2 vax STEFAN MANDY [facility] 09-15-2020 SARS-CoV-2 (COVID-19 ) mRNA BNT-162b2 vax STEFAN MANDY [facility] 09-17-2000 DTaP, unspecified formulation STEFAN MANDY [facility] 09-17-2000 measles, mumps and rubella virus vaccine STEFAN MANDY [facility] 09-17-2000 poliovirus vaccine, unspecified formulation STEFAN MANDY [facility] 10-05-1997 DTaP, unspecified formulation STEFAN MANDY [facility] 10-31-1996 DTaP, unspecified formulation STEFAN MANDY [facility] 10-31-1996 hepatitis B vaccine, pediatric or pediatric/adolescent dosage STEFAN MANDY [facility] 10-31-1996 Hib, unspecified formulation STEFAN MANDY [facility] 10-31-1996 measles, mumps and rubella virus vaccine STEFAN MANDY [facility] 04-16-1996 DTP-Hib STEFAN MANDY [facility] 02-15-1996 DTP-Hib STEFAN MANDY [facility] 02-15-1996 hepatitis B vaccine, pediatric or pediatric/adolescent dosage STEFAN MANDY [facility] 1995 hepatitis B vaccine, pediatric or pediatric/adolescent dosage STEFAN MANDY [facility] Payers Date Payer Category Payer Self-pay 1995 Unknown [id number] 1995 Unknown [id number] [id number] 1995 Unknown [id number] [id number] 1959 Private Health Insurance [id number] Unknown [id number] [id number] [id number] Social History Date Type Detail Facility Start: 11-20-2023 Tobacco smoking status Never s moked tobacco (finding) [facility] Tobacco smoking status Never [facility] Sex Assigned At Male [facility] Start: 1995 Sex Assigned At Male F [facility] Evaluation + Plan note 11-20-2023 Laboratory Note Date & Type Note Facility 11-20-2023 Evaluation + Plan note Diagnostic Tests PendingANA w/Reflex if POS 11/20/23Rheumatoid Factor Quantitative 11/20/23 Future Scheduled TestsUric Acid 11/20/23 [facility] Evaluation note Note Date & Type Note Facility Evaluation note No assessment information availa [facility] Work Phone: Hospital course Narrative Note Date & Type Note Facility Hospital course Narrative No data available for this section [facility] Hospital Discharge instructions Note Date & Type Note Facility Hospital Discharge instructions No data available for this section [facility] Progress note Note Date & Type Note Facility Progress note No data available for this section [facility] Summary Purpose Family History No Family History Records Found No data available for this section No Family History Records FoundNo Family History Records FoundNo Family History Records FoundNo Family History Records FoundNo Family History Records FoundNo Family History Records FoundNo Family History Records FoundNo Family History Records FoundNo Family History Records FoundNo Family History Records FoundNo Family History Records Found Advance Directives No Advanced Directives Records Found Advance Directive Response Recorded Date/ Time Advance Directives No January 09 024 10:41am Chief Complaint and Reason for Visit Chief Complaint OA Positive RF Hand/ wrist pain R76.0 Polyarthritis Additional Source Comments (unrecognized sect ion and content) No Status Records FoundNo Status Records FoundNo Status Records FoundNo Status Records FoundNo Status Records FoundNo Status Records FoundNo Status Records FoundNo Status Records FoundNo Status Records FoundNo Status Records FoundNo Status Records FoundNo Status Records Found INFORMATION SOURCE (unrecogn ized section and content) DATE CREATED AUTHOR 06/18/2020 [facility] DATE CREATED AUTHOR AUTHOR'S ORGANIZ ATION 11/21/2023 [facility] DATE CREATED AUTHOR AUTHOR'S ORGANIZ ATION 11/23/2023 [facility] DATE CREATED AUTHOR AUTHOR'S ORGANIZ ATION 11/26/2023 [facility] DATE CREATED AUTHOR AUTHOR'S ORGANIZ ATION 01/20/2024 [facility] Patient Care team informatio n (unrecognized section and content) Team Status: Active Member Role Status Dates [facility] Provider Active Team Status: Inactive Member Role Status Dates Arnold Yates MD Attending Provider Active St art: January 10, 2024 End: January 10, 2024 [facility] Primary Care Provider Active Start: January 10, 2024 End: January 10, 2024 Goals (unrecognized section and content) Goals may be documented in a n alternate section FOR RECORDS PERTAINING TO PATIENTS WHO ARE OR HAVE BEEN ENROLLED IN A CHEMICAL DEPENDENCY/SUBSTANCEABUSE PROGRAM, SOME INFORMATION MAY BE OMITTED. This clinical summary was aggregated from multiple sources. Caution should be exercised in using it in the provision of clinical care. This summary normalizes information from multiple sources, and as a consequence, information in this document may materially change the coding, format and clinical context of patient data. In addition, data may be omitted in some cases. CLINICAL DECISIONS SHOULD BE BASED ON THE PRIMARY CLINICAL RECORDS. [employer] provides no warranty or guarantee of the accuracy or completeness of information in this document.
[2024-11-22 10:44] LABS: Basophils Absolute Auto 0.1 10^3/uL (0.0-0.1); Basophils Percent Auto 0.7 % (0.2-2.0); Eosinophils Absolute Auto 0.1 10^3/uL (0.0-0.7); Eosinophils Percent Auto 1.4 % (0.9-7.0); Hematocrit 46.2 % (42.0-54.0); Hemoglobin 16.2 g/dL (14.0-18.0); Immature Granulocytes Abs Auto 0.01 10^3/uL (0.00-0.03); Immature Granulocytes Pct Auto 0.1 % (0.0-0.5); Lymphocytes Absolute Auto 2.5 10^3/uL (1.2-3.8); Mean Corpuscular HGB Conc 35.1 g/dL (29.9-35.2); Mean Corpuscular Hemoglobin 29.8 pg (25.9-34.0); Mean Corpuscular Volume 84.9 fL (80.0-94.0); Mean Platelet Volume 8.9 fL (9.5-13.5); Monocytes Absolute Auto 0.9 10^3/uL (0.3-0.8); Monocytes Percent Auto 11.8 % (1.7-12.0); Neutrophils Absolute Auto 3.7 10^3/uL (1.4-6.5); Platelet Count 276 10^3/uL (150-450); Red Blood Count 5.44 10^6/uL (4.70-6.10); Red Cell Distribution Width 12.1 % (11.0-15.0); White Blood Count 7.3 10^3/uL (4.0-11.0)
[2024-11-22 10:46] LABS: Erythrocyte Sedimentation Rate 11 mm/hr (<=15)
[2024-11-22 11:24] LABS: Alanine Aminotransferase 57 U/L (16-63); Albumin Globulin Ratio 1.2; Albumin Level 4.2 g/dL (3.4-5.0); Alkaline Phosphatase 57 U/L (46-116); Anion Gap 14.7; Aspartate Amino Transferase 19 U/L (15-37); BUN Creatinine Ratio 22.2; Bilirubin Total 0.8 mg/dL (0.2-1.0); Calcium 9.7 mg/dL (8.5-10.1); Carbon Dioxide 28.3 mmol/L (21.0-32.0); Chloride 104 mmol/L (98-107); Estimated GFR (African America >60 (>=60 mL/min/1.73m^2); Estimated GFR (Non-African Ame >60 (>=60 mL/min/1.73m^2); Globulin 3.6 g/dL; Glucose 90 mg/dL (74-106); Sodium 143 mmol/L (136-145); Total Protein 7.8 g/dL (6.4-8.2)
== END 2024-11-22 10:22 | disposition home or self-care (01) ==
PROVIDERS: PCP Nurse Practitioner; Visit Provider Internal Medicine Rheumatology
DX: M06.9 Rheumatoid arthritis, unspecified (principal); Z51.81 Encounter for therapeutic drug level monitoring
CPT/HCPCS: 36415; 80053; 85025; 85652

== ENCOUNTER 2025-04-09 09:53 | Outpatient (OUT) | payer OTHER, SELFPAY ==
--- OUTSIDE RECORDS SUMMARY | 2025-04-09 10:01 | XMS_ITS | CCD ---
Author Organization [facility] Care Team Providers Care Sales Representative [employer] Name Role Phone ARELY MAYEN Attending Unavailable ARELY MAYEN Consulting Unavailable ARELY MAYEN Admitting Unavailable STEFAN GALVAN Primary Care Physician [phone] STEFAN GALVAN Attending Unavailable STEFAN GALVAN Admitting Unavailable STEFAN GALVAN Admitting Unavailable STEFAN GALVAN Attending Unavailable STEFAN GALVAN Attending Unavailable MD Arnold Yates Attending Provider [facility]AST[facility] Stefan Davey Primary Care Provider Stefan Galvan Primary Care Unavailable Arnold Yates Attending Unavailable Arnold Yates Admitting Unavailable Allergies Allergy ClassificationReported Allergen(s)Allergy TypeDate of OnsetReaction(s) Facility (1 source)LatexDrug allergy (disorder)46-20-0018[facility] ([facility])No Known Medication Allergies; Translations: [No Known Medication Allergies]Propensity to adverse reactions (disorder)[facility] Repository Problems Problem ClassificationProblemDateDocumented DateEpisodic/ChronicImmunizations and screening for infectious disease (5 sources)Contact with and (suspected) exposure to other viral communicable diseases; Translations: [Raised antibody titer]Onset: 01-23-4814MhhgczuhBpcca nutritional; endocrine; and metabolic disorders (1 source)Body mass index 40+ - severely -73-9764Biiexku Results Test NameValueInterpretationReference RangeFacilityANA Antinuclear Antibodieson 76-43-1488Evpopdhaeub Abs, IFAPositiveCritically abnormal.The [facility] Physician GroupComment on above:Result Comment: Negative <1:80 Borderline 1:80 Positive >1:80Performed By: #### TSH3, CBC, URIC, CK, CMP, ADDONUAPLUS, ESR, CRP, T4F #### [facility] [address] #### RIMMA, RPR W RFX, THYGLOB AB, TPO #### [facility] ,Homogeneous Pattern1:80Normal.The [facility] Health Physician GroupComment on above: Result Comment: ICAP nomenclature: [id number] By: #### TSH3, CBC, URIC, CK, CMP, ADDONUAPLUS, ESR, CRP, T4F #### [facility] [address] #### RIMMA, RPR W RFX, THYGLOB AB, TPO #### [facility] ,Note 1CommentNormal.The [facility] Health Physician GroupComment on above:Result Comment: Pattern Potential Disease Association Homogeneous Systemic Lupus Erythematosus, Drug Induced Systemic Lupus Erythematosus, Chronic Autoimmune hepatitis, Juvenile Idiopathic Arthritis Speckled Sjogren Syndrome, Systemic Lupus Erythematosus, Subacute Cutaneous Lupus, Lupus, Congenital Heart Block, Mixed Connective Tissue Disease, Scleroderma-diffuse, Scleroderma-Autoimmune Myositis Overlap Syndrome, Systemic Lupus Aysypzxkpqexp-Olhlpbbzwok-Zagplnqkrc Myositis Overlap Syndrome, Systemic Autoimmune Rheumatic Disease, [...] Linear Scleroderma, Antiphospholipid Syndrome Performed at: - [facility] [id number] Nurse Advocate: Alejandro Etienne PhD, Phone: [phone] By: #### TSH3, CBC, URIC, CK, CMP, ADDONUAPLUS, ESR, CRP, T4F #### [facility] [address] #### RIMMA, RPR W RFX, THYGLOB AB, TPO #### [facility] ,Alanine aminotransferase [Enzymatic activity/volume] in Serum or PlasmaOrdered By: Arnold Yates on 42-82-7788YYR [Catalytic activity/Vol]43 U/LNormal7-52 [facility]itt[facility] Medical CenterComment on above:Performed By: #### TSH3, CBC, URIC, CK, CMP, ADDONUAPLUS, ESR, CRP, T4F #### [place] [address] [place] #### RIMMA, RPR W RFX, THYGLOB AB, TPO #### [facility] ,Albumin [Mass/volume] in Serum or Plasma by Bromocresol green (BCG) dye binding methoOrdered By: Arnold Yates on 01-47-2307Joptdki BCG dye [Mass/Vol]4.7 g/dL 3.5-5.7FRegency Hospital Cleveland WestAlkaline phosphatase [Enzymatic activity/volume] in Serum or PlasmaOrdered By: Arnold Yates on 41-46-4879WQP [Catalytic activity/Vol]39 U/XWtpfdl18-777UhseaojdoSumma Health Wadsworth - Rittman Medical Center Comment on above:Performed By: #### TSH3, CBC, URIC, CK, CMP, ADDONUAPLUS, ESR, CRP, T4F #### [place] [address] [place] #### RIMMA, RPR W RFX, THYGLOB AB, TPO #### [facility] ,Antithyroglobulin Abon 59-18-5945Qtuotekygamsqtrlb Ab<1.5Icanor7.0-0.9The [facility] Health Physician GroupComment on above:Result Comment: Thyroglobulin Antibody measured by [employer] Renetta Methodology It should be noted that the presence of thyroglobulin antibodies may not be pathogenic nor diagnostic, especially at very low levels. The assay labor delivery rn has found that four percent of individuals without evidence of thyroid disease or autoimmunity will have positive TgAb levels up to 4 IU/mL. Performed at: [address] [id number] Nurse Advocate: Alejandro Etienne PhD, Phone: [phone] By: #### TSH3, CBC, URIC, CK, CMP, ADDONUAPLUS, ESR, CRP, T4F #### [place] [address] [place] #### RIMMA, RPR W RFX, THYGLOB AB, TPO #### [facility] ,Aspartate aminotransferase [Enzymatic activity/volume] in Serum or Plasma Ordered By: Arnold Yates on 83-19-6766WDF [Catalytic activity/Vol]23 U/LNormal 13-39[facility] Rittman Medical CenterComment on above:Performed By: #### TSH3, CBC, URIC, CK, CMP, ADDONUAPLUS, ESR, CRP, T4F #### [place] [address] [place] #### RIMMA, RPR W RFX, THYGLOB AB, TPO #### [facility] ,Automated basophil %Ordered By: Arnold Yates on 09-26-5065Ycvjogcav/100 WBC (Bld)0.7 %Normal.[facility] Rittman Medical CenterComment on above:Performed By: #### TSH3, CBC, URIC, CK, CMP, ADDONUAPLUS, ESR, CRP, T4F #### [place] [address] [place] #### RIMMA, RPR W RFX, THYGLOB AB, TPO #### [facility] ,Automated basophil countOrdered By: Arnold Yates on 89-61-8439Jugzitmov (Bld) [#/Vol]0.1 10*3/uLNormal0.0-0.2FRegency Hospital Cleveland WestComment on above:Performed By: #### TSH3, CBC, URIC, CK, CMP, ADDONUAPLUS, ESR, CRP, T4F #### [place] [address] [place] #### RIMMA, RPR W RFX, THYGLOB AB, TPO #### [facility] ,Automated blood monocyte countOrdered By: Arnold Yates on 95-21-4656Mvwrerrqi (Bld) [#/Vol]0.8 10*3/uLNormal0.0-0.8[facility]itt[facility] Medical CenterComselect specialty hospital-flint on above:Performed By: #### TSH3, CBC, URIC, CK, CMP, ADDONUAPLUS, ESR, CRP, T4F #### [place] [address] [place] #### RIMMA, RPR W RFX, THYGLOB AB, TPO #### [facility] ,Automated eosinophil %Ordered By: Arnold Yates on 69-89-7805Vuwjlrvcgko/100 WBC (Bld)1.0 %Normal.[facility] Ritt[facility] Medical CenterComment on above:Performed By: #### TSH3, CBC, URIC, CK, CMP, ADDONUAPLUS, ESR, CRP, T4F #### [address] #### RIMMA, RPR W RFX, THYGLOB AB, TPO #### [facility] ,Automated eosinophil countOrdered By: Arnold Yates on 36-50-3881Xtnuvumhcgk (Bld) [#/Vol]0.1 10*3/uLNormal0.0-0.45[facility] Medical CenterComment on above:Performed By: #### TSH3, CBC, URIC, CK, CMP, ADDONUAPLUS, ESR, CRP, T4F #### [address] #### RIMMA, RPR W RFX, THYGLOB AB, TPO #### [facility] ,Automated monocyte %Ordered By: Arnold Yates on 65-30-9018Kswvlojuw/100 WBC (Bld)10.5 %Normal.[facility]itt[facility] Medical CenterComment on above:Performed By: #### TSH3, CBC, URIC, CK, CMP, ADDONUAPLUS, ESR, CRP, T4F #### [place] [address] [place] #### RIMMA, RPR W RFX, THYGLOB AB, TPO #### [facility] ,Automated neutrophil %Ordered By: Arnold Yates on 39-54-9664Yjbfmyagjrb/100 WBC (Bld)59.1 %Normal.[facility] Rittman Medical CenterComment on above: Performed By: #### TSH3, CBC, URIC, CK, CMP, ADDONUAPLUS, ESR, CRP, T4F #### [place] [id number] [place] #### RIMMA, RPR W RFX, THYGLOB AB, TPO #### [facility] ,Bacteria [Presence] in Urine by AutomatedOrdered By: Arnold Yates on 14-20-4944Xuwqszsn Auto Ql (U)None seen [HPF]None SeenSumma Health Wadsworth - Rittman Medical CenterBilirubin Test strip Ql (U)Ordered By: Arnold Yates on 01-10-2024 Bilirubin Ql (U)NegativeNegativeSumma Health Wadsworth - Rittman Medical CenterBilirubin.total [Mass/volume] in Serum or PlasmaOrdered By: Arnold Yates on 01-10-2024 Bilirubin [Mass/Vol]0.7 mg/dLNormal0.3-1.0[facility] Comment on above:Performed By: #### TSH3, CBC, URIC, CK, CMP, ADDONUAPLUS, ESR, CRP, T4F #### [facility] [address] [place] [address] #### RIMMA, RPR W RFX, THYGLOB AB, TPO #### [facility] ,C reactive protein [Mass/volume] in Serum or PlasmaOrdered By: Arnold Yates on 18-33-0837SHY [Mass/Vol]1.5 mg/dLHigh0.0-0.5FRegency Hospital Cleveland West C-Reactive Proteinon 21-95-8218Y-Reactive Protein1.5 mg/dLHigh0.0-0.5The [facility] Physician GroupComment on above:Performed By: #### TSH3, CBC, URIC, CK, CMP, ADDONUAPLUS, ESR, CRP, T4F #### [facility] [address] [place] [address] [place] #### RIMMA, RPR W RFX, THYGLOB AB, TPO #### [facility] ,Calcium [Mass/volume] in Serum or PlasmaOrdered By: Arnold Urrutiarow on 04-40-8886Bzaolov [Mass/Vol]10.4 mg/dLHigh8.6-10.3FRegency Hospital Cleveland WestComment on above:Performed By: #### TSH3, CBC, URIC, CK, CMP, ADDONUAPLUS, ESR, CRP, T4F #### [facility] [address] [place] [address] #### RIMMA, RPR W RFX, THYGLOB AB, TPO #### [facility] ,Carbon dioxide, total [Moles/volume] in Serum or PlasmaOrdered By: Arnold Yates on 89-94-0924ED4 [Moles/Vol]27.0 mmol/LEjunye73.0-31.0Sum[facility] Ritt[facility] Medical CenterComment on above:Performed By: #### TSH3, CBC, URIC, CK, CMP, ADDONUAPLUS, ESR, CRP, T4F #### [address] #### RIMMA, RPR W RFX, THYGLOB AB, TPO #### [facility] ,Chloride [Moles/volume] in Serum or PlasmaOrdered By: Arnold Yates on 25-11-2006Teivrijn [Moles/Vol]104 mmol/BUvsici21-785ZcxrprmqySumma Health Wadsworth - Rittman Medical CenterComment on above:Performed By: #### TSH3, CBC, URIC, CK, CMP, ADDONUAPLUS, ESR, CRP, T4F #### [address] #### RIMMA, RPR W RFX, THYGLOB AB, TPO #### [facility] ,Color of Urine by AutoOrdered By: Arnold Yates on 46-45-2938Kzhcp (U) Light-yellowNormalYKettering Health Main CampusComselect specialty hospital-flint on above:Order Comment: Name Collection Type:: Clean-Voided MidstreamPerformed By: #### TSH3, CBC, URIC, CK, CMP, ADDONUAPLUS, ESR, CRP, T4F #### [address] #### RIMMA, RPR W RFX, THYGLOB AB, TPO #### [facility] ,Complete Blood Count Auto Diffon 84-63-8068Chfz Corpuscular HGB Conc34.4 g/dL Tvwlgu03.5-35.6The [facility] Health Physician GroupComment on above:Performed By: #### TSH3, CBC, URIC, CK, CMP, ADDONUAPLUS, ESR, CRP, T4F #### [address] #### RIMMA, RPR W RFX, THYGLOB AB, TPO #### [facility] ,NRBC%0.3 /100{WBC}Normal0-0.5The [facility] Health Physician GroupComment on above: Performed By: #### TSH3, CBC, URIC, CK, CMP, ADDONUAPLUS, ESR, CRP, T4F #### [address] #### RIMMA, RPR W RFX, THYGLOB AB, TPO #### [facility] ,Comprehensive Metabolic Panelon 28-98-6551Idbanen [Mass/Vol]4.7 g/dLNormal 3.5-5.7The [facility] Health Physician GroupComment on above:Performed By: #### TSH3, CBC, URIC, CK, CMP, ADDONUAPLUS, ESR, CRP, T4F #### [address] #### RIMMA, RPR W RFX, THYGLOB AB, TPO #### [facility] ,GFR/1.73 sq M.predicted MDRD (S/P/Bld) [Vol rate/Area]mL/min/{1.73_m2}NormalThe [facility]orum Health Physician GroupComment on above:Performed By: #### TSH3, CBC, URIC, CK, CMP, ADDONUAPLUS, ESR, CRP, T4F #### [facility] [address] [place] [address] [place] #### RIMMA, RPR W RFX, THYGLOB AB, TPO #### [facility] ,Creatine kinase [Enzymatic activity/volume] in Serum or PlasmaOrdered By: Arnold Yates on 97-48-4988LO [Catalytic activity/Vol]87 U/XIakxol48-491 [facility]itt[facility] Medical CenterComment on above:Result Comment: PERFORMED BY: [place] [address] PATHOLOGIST ASSISTANT CHIEF ENGINEER PRUDENCE SIEGEL M.D.Performed By: #### TSH3, CBC, URIC, CK, CMP, ADDONUAPLUS, ESR, CRP, T4F #### [address] #### RIMMA, RPR W RFX, THYGLOB AB, TPO #### [facility] ,Creatinine [Mass/volume] in Serum or PlasmaOrdered By: Arnold Yates on 71-62-6257Kfiesqlmmn [Mass/Vol]0.89 mg/dLNormal0.70-1.30[facility] Rittman Medical CenterComment on above:Performed By: #### TSH3, CBC, URIC, CK, CMP, ADDONUAPLUS, ESR, CRP, T4F #### [address] #### RIMMA, RPR W RFX, THYGLOB AB, TPO #### [facility] ,Dipstick and Microscopicon 98-69-3853Fopjyjvi,UrineNone SeenNormalNone SeenThe Quorum Health Physician GroupComment on above:Order Comment: Name Collection Type:: Clean-Voided MidstreamPerformed By: #### TSH3, CBC, URIC, CK, CMP, ADDONUAPLUS, ESR, CRP, T4F #### [place] [address] [place] #### RIMMA, RPR W RFX, THYGLOB AB, TPO #### [facility] ,Bilirubin,UrineNegativeNormalNegativeThe [facility]orum Health Physician GroupComment on above:Order Comment: Name Collection Type:: Clean-Voided MidstreamPerformed By: #### TSH3, CBC, URIC, CK, CMP, ADDONUAPLUS, ESR, CRP, T4F #### [address] #### RIMMA, RPR W RFX, THYGLOB AB, TPO #### [facility] ,Glucose Ql (U)NormalNormalNormalThe [facility] Health Physician GroupComment on above: Order Comment: Name Collection Type:: Clean-Voided MidstreamPerformed By: #### TSH3, CBC, URIC, CK, CMP, ADDONUAPLUS, ESR, CRP, T4F #### [address] #### RIMMA, RPR W RFX, THYGLOB AB, TPO #### [facility] ,Hyaline Casts,Sgudv6-3Isygid4-6Ajv [facility] Physician GroupComment on above: Order Comment: Name Collection Type:: Clean-Voided MidstreamPerformed By: #### TSH3, CBC, URIC, CK, CMP, ADDONUAPLUS, ESR, CRP, T4F #### [address] #### RIMMA, RPR W RFX, THYGLOB AB, TPO #### [facility] ,Mucus,UrineRareNormalThe [facility] Health Physician GroupComment on above:Order Comment: Name Collection Type:: Clean-Voided MidstreamResult Comment: PERFORMED BY: [place] [address] PATHOLOGIST ASSISTANT CHIEF ENGINEER PRUDENCE SIEGEL M.D.Performed By: #### TSH3, CBC, URIC, CK, CMP, ADDONUAPLUS, ESR, CRP, T4F #### [address] #### RIMMA, RPR W RFX, THYGLOB AB, TPO #### [facility] ,Nitrite,UrineNegativeNormalNegativeThe [facility] Health Physician GroupComment on above:Order Comment: Name Collection Type:: Clean-Voided MidstreamPerformed By: #### TSH3, CBC, URIC, CK, CMP, ADDONUAPLUS, ESR, CRP, T4F #### [address] #### RIMMA, RPR W RFX, THYGLOB AB, TPO #### [facility] ,Occult Blood,UrineNegativeNormalNegativeThe [facility] Health Physician GroupComment on above:Order Comment: Name Collection Type:: Clean-Voided MidstreamPerformed By: #### TSH3, CBC, URIC, CK, CMP, ADDONUAPLUS, ESR, CRP, T4F #### [address] #### RIMMA, RPR W RFX, THYGLOB AB, TPO #### [facility] ,Protein,UrineNegativeNormalNegativeThe [facility] Health Physician GroupComment on above:Order Comment: Name Collection Type:: Clean-Voided MidstreamPerformed By: #### TSH3, CBC, URIC, CK, CMP, ADDONUAPLUS, ESR, CRP, T4F #### [address] #### RIMMA, RPR W RFX, THYGLOB AB, TPO #### [facility] ,RBC,Aqefg8-3Azsqvn0-1Quq [facility] Physician GroupComment on above:Order Comment: Name Collection Type:: Clean-Voided MidstreamPerformed By: #### TSH3, CBC, URIC, CK, CMP, ADDONUAPLUS, ESR, CRP, T4F #### [place] [address] [place] #### RIMMA, RPR W RFX, THYGLOB AB, TPO #### [facility] ,Specificy [place],Urine1.935Ntajmo6.001-1.030The [facility] Comment on above:Order Comment: Name Collection Type:: Clean-Voided Midstream Performed By: #### TSH3, CBC, URIC, CK, CMP, ADDONUAPLUS, ESR, CRP, T4F #### [place] [address] [place] #### RIMMA, RPR W RFX, THYGLOB AB, TPO #### [facility] ,Squamous Epithelial Cell,Trnvr3-9Pmsqcy8-2Xff [facility] Physician GroupComment on above:Order Comment: Name Collection Type:: Clean-Voided MidstreamPerformed By: #### TSH3, CBC, URIC, CK, CMP, ADDONUAPLUS, ESR, CRP, T4F #### [address] #### RIMMA, RPR W RFX, THYGLOB AB, TPO #### [facility] ,Urobilinogen,UrineNormalNormalNormalThe [facility] Physician GroupComment on above:Order Comment: Name Collection Type:: Clean-Voided MidstreamPerformed By: #### TSH3, CBC, URIC, CK, CMP, ADDONUAPLUS, ESR, CRP, T4F #### [address] #### RIMMA, RPR W RFX, THYGLOB AB, TPO #### [facility] ,WBC,Aakjw6-6Vvxk0-1Ocb [facility] Physician GroupComment on above:Order Comment: Name Collection Type:: Clean-Voided MidstreamPerformed By: #### TSH3, CBC, URIC, CK, CMP, ADDONUAPLUS, ESR, CRP, T4F #### [address] #### RIMMA, RPR W RFX, THYGLOB AB, TPO #### [facility] ,Epithelial cells.squamous [#/area] in Urine sediment by Automated countOrdered By: Arnold Yates on 22-15-1105Yejgnlcdzx cells.squamous Auto (Urine sed) [#/Area]1-2 [HPF]0-2FRegency Hospital Cleveland WestErythrocyte Sedimentation Rateon 48-24-1724MVQ (Bld) [Velocity]28 mm/hHigh0-14The [facility] Physician GroupComment on above:Result Comment: PERFORMED BY: [address] [place] [address] PATHOLOGIST ASSISTANT CHIEF ENGINEER PRUDENCE SIEGEL M.D.Performed By: #### TSH3, CBC, URIC, CK, CMP, ADDONUAPLUS, ESR, CRP, T4F #### [address] #### RIMMA, RPR W RFX, THYGLOB AB, TPO #### [facility] ,Erythrocyte distribution width [Ratio] by Automated countOrdered By: Arnold Yates on 80-35-0117Tkghypkytii distribution width (RBC) [Ratio]12.3 %Normal 12.0-14.8[facility] Rittman Medical CenterComment on above:Performed By: #### TSH3, CBC, URIC, CK, CMP, ADDONUAPLUS, ESR, CRP, T4F #### [address] #### RIMMA, RPR W RFX, THYGLOB AB, TPO #### [facility] ,Erythrocyte sedimentation rate by Photometric methodOrdered By: Arnold Yates on 32-70-6817BCB Photometric method (Bld) [Velocity]28 mm/hrHigh0-14[facility] Ritt[facility] Medical CenterErythrocytes [#/area] in Urine sediment by Automated countOrdered By: Arnold Yates on 86-05-7815INR Auto (Urine sed) [#/Area]1-2 [HPF]0-4FRegency Hospital Cleveland WestErythrocytes [#/volume] in Blood by Automated countOrdered By: Arnold Yates on 28-34-8048YTZ (Bld) [#/Vol]5.35 10*6/uLNormal3.90-5.60[facility] Ritt[facility] Medical CenterComment on above: Performed By: #### TSH3, CBC, URIC, CK, CMP, ADDONUAPLUS, ESR, CRP, T4F #### [place] [address] [place] #### RIMMA, RPR W RFX, THYGLOB AB, TPO #### [facility] ,Glucose [Mass/volume] in Serum or PlasmaOrdered By: Arnold Yates on 04-32-7644Ufuoeuo [Mass/Vol]109 mg/pRCaoc65-764McugukzlvSumma Health Wadsworth - Rittman Medical Center Comment on above:ADA recommended reference rangeRandom Glucose Reference Range is dependent on time and content of last meal. Glucose of more than 200 mg/dL in a nonstressed, ambulatory subject supports the diagnosisof Diabetes Mellitus. Result Comment: Random Glucose Reference Range is dependent on time and content of last meal. Glucose of more than 200 mg/dL in a nonstressed, ambulatory subject supports the diagnosis of Diabetes Mellitus. ADA recommended reference rangePerformed By: #### TSH3, CBC, URIC, CK, CMP, ADDONUAPLUS, ESR, CRP, T4F #### [address] #### RIMMA, RPR W RFX, THYGLOB AB, TPO #### [facility] ,Glucose [Mass/volume] in Urine by Test stripOrdered By: Arnold Yates on 06-47-5926Hqgbrko Test strip (U) [Mass/Vol]Normal mg/dLNoalSumma Health Wadsworth - Rittman Medical CenterHematocrit [Volume Fraction] of Blood by Automated countOrdered By: Arnold Yates on 25-68-4245Cuffxxpynz (Bld) [Volume fraction]45.9 %Normal 38.8-50.0[facility] Rittman Medical CenterComment on above:Performed By: #### TSH3, CBC, URIC, CK, CMP, ADDONUAPLUS, ESR, CRP, T4F #### [address] #### RIMMA, RPR W RFX, THYGLOB AB, TPO #### [facility] ,Hemoglobin Test strip Ql (U)Ordered By: Arnold Yates on 47-31-7437Iutttzwxiy Ql (U)NegativeNegativeSumma Health Wadsworth - Rittman Medical CenterHemoglobin [Mass/volume] in BloodOrdered By: Arnold Yates on 82-45-0715Fqsqjljunw (Bld) [Mass/Vol]15.8 g/iBFqpcvy91.0-17.0[facility] Ritt[facility] Medical CenterComment on above:Performed By: #### TSH3, CBC, URIC, CK, CMP, ADDONUAPLUS, ESR, CRP, T4F #### [facility] [address] [place] [address] [place] #### RIMMA, RPR W RFX, THYGLOB AB, TPO #### [facility] ,Hyaline casts [#/area] in Urine sediment by Automated countOrdered By: Arnold Yates on 28-78-0498Ymdjevf casts Auto (Urine sed) [#/Area]0-8 [LPF]0-8[facility] - Ritt[facility] Medical CenterKetones [Presence] in Urine by Test stripOrdered By: Arnold Trudy on 55-58-2348Kcjiyck Ql (U)NegativeMercy Health – The Jewish HospitalComment on above:Order Comment: Name Collection Type:: Clean-Voided MidstreamPerformed By: #### TSH3, CBC, URIC, CK, CMP, ADDONUAPLUS, ESR, CRP, T4F #### [facility] [address] [place] [address] #### RIMMA, RPR W RFX, THYGLOB AB, TPO #### [facility] ,Leukocyte esterase [Presence] in Urine by Test stripOrdered By: Arnold Yates on 98-41-5631Vbgfwpzlw esterase Test strip Ql (U)NegativeMercy Health – The Jewish HospitalComment on above:Order Comment: Name Collection Type:: Clean-Voided MidstreamPerformed By: #### TSH3, CBC, URIC, CK, CMP, ADDONUAPLUS, ESR, CRP, T4F #### [facility] [address] [place] [address] [place] #### RIMMA, RPR W RFX, THYGLOB AB, TPO #### [facility] ,Leukocytes [#/area] in Urine sediment by Automated countOrdered By: Arnold Yates on 70-49-9521SMK Auto (Urine sed) [#/Area]5-9 [HPF]High0-4FRegency Hospital Cleveland WestLeukocytes [#/volume] corrected for nucleated erythrocytes in Blood by Automated counOrdered By: Arnold Yates on 01-10-2024 WBC corrected for nucl RBC Auto (Bld) [#/Vol]8.0 10*3/uL4.1-10.5FRegency Hospital Cleveland WestLeukocytes [#/volume] in Blood by Automated countOrdered By: Arnold Yates on 78-00-6614TWL (Bld) [#/Vol]8.0 10*3/uLNormal4.1-10.5 [facility] Ritt[facility] Medical CenterComment on above:Performed By: #### TSH3, CBC, URIC, CK, CMP, ADDONUAPLUS, ESR, CRP, T4F #### [facility] [address] [place] [address] #### RIMMA, RPR W RFX, THYGLOB AB, TPO #### [facility] ,Lymphocytes [#/volume] in Blood by Automated countOrdered By: Arnold Yates on 23-07-1868Rgvesbyjvbw (Bld) [#/Vol]2.3 10*3/uLNormal1.00-4.8[facility] - Rittman Medical CenterComment on above:Performed By: #### TSH3, CBC, URIC, CK, CMP, ADDONUAPLUS, ESR, CRP, T4F #### [place] [address] [place] #### RIMMA, RPR W RFX, THYGLOB AB, TPO #### [facility] ,Lymphocytes/100 leukocytes in Blood by Automated countOrdered By: Arnold Yates on 98-63-4130Bsejqjghkre/100 WBC (Bld)28.7 %Normal.[facility] Rittman Medical CenterComment on above:Performed By: #### TSH3, CBC, URIC, CK, CMP, ADDONUAPLUS, ESR, CRP, T4F #### [place] [address] [place] #### RIMMA, RPR W RFX, THYGLOB AB, TPO #### [facility] ,MCH [Entitic mass] by Automated countOrdered By: Arnold Yates on 01-10-2024 MCH (RBC) [Entitic mass]29.5 bmRgetkg84.5-35.2FRegency Hospital Cleveland West Comment on above:Performed By: #### TSH3, CBC, URIC, CK, CMP, ADDONUAPLUS, ESR, CRP, T4F #### [place] [address] [place] #### RIMMA, RPR W RFX, THYGLOB AB, TPO #### [facility] ,MCHC Auto (RBC) [Mass/Vol]Ordered By: Arnold Yates on 58-59-9773SWJS (RBC) [Mass/Vol]34.4 g/dL32.5-35.6FRegency Hospital Cleveland WestMCV [Entitic volume] by Automated countOrdered By: Arnold Yates on 36-10-0048VIT (RBC) [Entitic vol]85.8 sZFoxxkz21.5-101Sum[facility] - Rittman Medical CenterComment on above:Performed By: #### TSH3, CBC, URIC, CK, CMP, ADDONUAPLUS, ESR, CRP, T4F #### [place] [address] [place] #### RIMMA, RPR W RFX, THYGLOB AB, TPO #### [facility] ,Mucus [Presence] in Urine by AutomatedOrdered By: Arnold Yates on 01-10-2024 Mucus Auto Ql (U)Rare [LPF][facility] Rittman Medical CenterNeutrophils [#/volume] in Blood by Automated countOrdered By: Arnold Yates on 01-10-2024 Neutrophils (Bld) [#/Vol]4.7 10*3/uLNormal1.8-7.7FRegency Hospital Cleveland WestComment on above:Performed By: #### TSH3, CBC, URIC, CK, CMP, ADDONUAPLUS, ESR, CRP, T4F #### [place] [address] [place] #### RIMMA, RPR W RFX, THYGLOB AB, TPO #### [facility] ,Nitrite Test strip Ql (U)Ordered By: Arnold Yates on [id number] Ql (U) NegativeNegativeSumma Health Wadsworth - Rittman Medical CenterNo Panel InformationOrdered By: Arnold Yates on [id number] GFR (CKD-EPI)> 60.0 mL/MinSumma Health Wadsworth - Rittman Medical CenterPharmacy Creatinine Clearance (ChemN/AFRegency Hospital Cleveland WestNucleated erythrocytes [Presence] in Blood by Automated count Ordered By: Arnold Yates on 03-23-8151Jfrzvdlyt RBC Auto Ql (Bld)0.3 /100{WBC} 0-0.5FRegency Hospital Cleveland WestPlatelet mean volume [Entitic volume] in Blood by Automated countOrdered By: Arnold Urrutiarow on 29-62-9011Yalwpnst mean volume (Bld) [Entitic vol]6.9 fLNormal6.6-10.1FRegency Hospital Cleveland West Comment on above:Performed By: #### TSH3, CBC, URIC, CK, CMP, ADDONUAPLUS, ESR, CRP, T4F #### [facility] [address] [place] [address] [place] #### RIMMA, RPR W RFX, THYGLOB AB, TPO #### [facility] ,Platelets [#/volume] in Blood by Automated countOrdered By: Arnold Urrutiarow on 08-16-9449Eoloyjwlm (Bld) [#/Vol]377 10*3/dGTlmukn074-273AqtmaptqrSumma Health Wadsworth - Rittman Medical CenterComment on above:Performed By: #### TSH3, CBC, URIC, CK, CMP, ADDONUAPLUS, ESR, CRP, T4F #### [facility] [address] [place] [address] [place] #### RIMMA, RPR W RFX, THYGLOB AB, TPO #### [facility] ,Potassium [Moles/volume] in Serum or PlasmaOrdered By: Arnold Yates on 99-20-3405Pgkyqrqjw [Moles/Vol]3.9 mmol/LNormal3.5-5.1FRegency Hospital Cleveland WestComment on above:Performed By: #### TSH3, CBC, URIC, CK, CMP, ADDONUAPLUS, ESR, CRP, T4F #### [address] #### RIMMA, RPR W RFX, THYGLOB AB, TPO #### [facility] ,Protein Test strip (U) [Mass/Vol]Ordered By: Arnold Yates on 01-10-2024 Protein (U) [Mass/Vol]NegativeNegativeSumma Health Wadsworth - Rittman Medical CenterProtein [Mass/volume] in Serum or PlasmaOrdered By: Arnold Yates on 97-44-9022Yoycljz [Mass/Vol]8.2 g/dLNormal6.4-8.9Summa Health Wad[facility] - Rittman Medical CenterComment on above:Performed By: #### TSH3, CBC, URIC, CK, CMP, ADDONUAPLUS, ESR, CRP, T4F #### [address] #### RIMMA, RPR W RFX, THYGLOB AB, TPO #### [facility] ,RPR w/rfx to Quant TP Abson 74-31-3088FQF, Rfx Quant RPRNon-ReactiveNormalNon ReactiveThe Quorum Health Physician GroupComment on above:Result Comment: Performed at: - [facility] [id number] Nurse Advocate: Alejandro Etienne PhD, Phone: [phone] PERFORMED BY: [place] [address] PATHOLOGIST ASSISTANT CHIEF ENGINEER PRUDENCE SIEGEL M.D.Performed By: #### TSH3, CBC, URIC, CK, CMP, ADDONUAPLUS, ESR, CRP, T4F #### [address] #### RIMMA, RPR W RFX, THYGLOB AB, TPO #### [facility] ,Serum globulin measurement by calculation (mass/volume)Ordered By: Arnold Yates on 30-89-8198Htojozlp (S) [Mass/Vol]3.5 g/dLNormalSumma Health Wadsworth - Rittman Medical CenterComment on above:Performed By: #### TSH3, CBC, URIC, CK, CMP, ADDONUAPLUS, ESR, CRP, T4F #### [address] #### RIMMA, RPR W RFX, THYGLOB AB, TPO #### [facility] ,Serum or plasma albumin/globulin mass ratioOrdered By: Arnold Yates on 36-31-4069Txhnjws/Globulin [Mass ratio]1.3 {ratio}[facility] Butler HospitalComment on above:Performed By: #### TSH3, CBC, URIC, CK, CMP, ADDONUAPLUS, ESR, CRP, T4F #### [address] #### RIMMA, RPR W RFX, THYGLOB AB, TPO #### [facility] ,Serum or plasma anion gap determinationOrdered By: Arnold Yates on 01-10-2024 Anion gap [Moles/Vol]10.9 mmol/LNormal6.0-15.0[facility] Comment on above:Performed By: #### TSH3, CBC, URIC, CK, CMP, ADDONUAPLUS, ESR, CRP, T4F #### [place] [address] [place] #### RIMMA, RPR W RFX, THYGLOB AB, TPO #### [facility] ,Sodium [Moles/volume] in Serum or PlasmaOrdered By: Arnold Yates on 39-23-0164Iiftrq [Moles/Vol]138 mmol/SIssvpb429-954LyfrrntvqSumma Health Wadsworth - Rittman Medical CenterComment on above:Performed By: #### TSH3, CBC, URIC, CK, CMP, ADDONUAPLUS, ESR, CRP, T4F #### [place] [address] [place] #### RIMMA, RPR W RFX, THYGLOB AB, TPO #### [facility] ,Specific gravity Test strip (U) [Rel density]Ordered By: Arnold Trudy on 55-77-6244Jyqmenpn gravity (U) [Rel density]1.0211.001-1.030Sum[facility] Health W[facility] - Rittman Medical CenterThyroid Peroxidase Antibodieson 70-94-3154Pufwsjl Peroxidase Bbjshewctr00Vhihsf9-03Rkc [facility] Health Physician GroupComment on above:Result Comment: Performed at: [address] [id number] Nurse Advocate: Alejandro Etienne PhD, Phone: [phone] By: #### TSH3, CBC, URIC, CK, CMP, ADDONUAPLUS, ESR, CRP, T4F #### [address] #### RIMMA, RPR W RFX, THYGLOB AB, TPO #### [facility] ,Thyrotropin [Units/volume] in Serum or PlasmaOrdered By: Arnold Yates on 49-13-3025SPM Qn4.09 m[IU]/LNormal0.45-5.33[facility] Comment on above:Result Comment: PERFORMED BY: [place] [address] PATHOLOGIST ASSISTANT CHIEF ENGINEER PRUDENCE SIEGEL M.D.Performed By: #### TSH3, CBC, URIC, CK, CMP, ADDONUAPLUS, ESR, CRP, T4F #### [facility] [address] [place] [address] #### RIMMA, RPR W RFX, THYGLOB AB, TPO #### [facility] ,Thyroxine (T4) free [Mass/volume] in Serum or PlasmaOrdered By: Arnold Yates on 97-17-3819Rllp T4 [Mass/Vol]0.74 ng/dLNormal0.61-1.12Sum[facility] Rittman Medical CenterComment on above:Performed By: #### TSH3, CBC, URIC, CK, CMP, ADDONUAPLUS, ESR, CRP, T4F #### [address] #### RIMMA, RPR W RFX, THYGLOB AB, TPO #### [facility] ,Urate [Mass/volume] in Serum or PlasmaOrdered By: Arnold Urrutiarow on 01-10-2024 Urate [Mass/Vol]7.7 mg/dLHigh4.4-7.6FRegency Hospital Cleveland WestComment on above:Performed By: #### TSH3, CBC, URIC, CK, CMP, ADDONUAPLUS, ESR, CRP, T4F #### [address] #### RIMMA, RPR W RFX, THYGLOB AB, TPO #### [facility] ,Urea nitrogen [Mass/volume] in Serum or PlasmaOrdered By: Arnold Yates on 31-42-3001Grzf nitrogen [Mass/Vol]16 mg/dLNormal7-25Sum[facility] - Rittman Medical CenterComment on above:Performed By: #### TSH3, CBC, URIC, CK, CMP, ADDONUAPLUS, ESR, CRP, T4F #### [address] #### RIMMA, RPR W RFX, THYGLOB AB, TPO #### [facility] ,Urine appearanceOrdered By: Arnold Yates on 67-98-5539Psmkwsbtig (U)Clear NormalCleWood County HospitalComselect specialty hospital-flint on above:Order Comment: Name Collection Type:: Clean-Voided MidstreamPerformed By: #### TSH3, CBC, URIC, CK, CMP, ADDONUAPLUS, ESR, CRP, T4F #### [address] #### RIMMA, RPR W RFX, THYGLOB AB, TPO #### [facility] ,Urobilinogen Test strip (U) [Mass/Vol]Ordered By: Arnold Yates on 01-10-2024 Urobilinogen (U) [Mass/Vol]Normal mg/dLNormalSumma Health Wadsworth - Rittman Medical CenterXR wrist BI 2Von 10-28-2794VX wrist BI 2VMERCY [facility]ALTH [facility] Main [facility] [address] [place] [address] XRay Report Signed Patient: Arnold Pulliam MR#: [id number] 277 : 1995 Acct:[id number] Age/Sex: 28 / M ADM Date: 01/10/24 Loc: ICXD Room: Type: [facility] CLI Attending Dr: Arnold Yates MD Copies to: Arnold Yates MD Ordering Provider: Arnold aYtes MD Date of Service: 01/10/24 XR/XR wrist BI 2V: PAIN ([id number]) XR/XR hand BI 2V: PAIN BILATERAL HAND [...] PROCESS. Impression dictated by: Danny Baker Jr., D.OCorine01/10/2024 2:17 PM Dictation Location: [place] [address] Transcribed By: [facility] 01/10/24 1417 Dictated By: Danny Baker Jr, DO 01/10/24 1416 Signed By: 01/10/24 [facility] Physician GrouppH of Urine by Test stripOrdered By: Arnold Yates on 12-77-6962uV (U)6.0 [pH]Normal5.0-9.0Sum[facility] W[facility] - Rittman Medical CenterComment on above:Order Comment: Name Collection Type:: Clean- Voided MidstreamPerformed By: #### TSH3, CBC, URIC, CK, CMP, ADDONUAPLUS, ESR, CRP, T4F #### [address] #### RIMMA, RPR W RFX, THYGLOB AB, TPO #### [facility] ,Physician Referralon 81-95-0423Lkqidgvuu Referral [id number]#[id number] Health [place]field HospitalANA w/Reflex if POSon 14-00-3492Ydyjyug Ab Ql (S)NegativeInvalid Interpretation CodeNegativeMercy Health Fairfield HospitalComment on above:Result Comment: Performed at: [address] [id number] PhD Jaimie Leonformed By: #### [id number] #### [facility] [address] [place] [address]PS Quanton 97-11-0510Kkrbhepurj factor Qn21.6 International_Unit/mLHigh<14.0Mer[facility] HospitalComment on above:Result Comment: Performed at: [address] [id number] PhD Jaimie Leonformed By: #### [id number] #### [facility] [address] [place], [place] [address]Ialpjvbgfv Visit Summaryon 27-51-9343Kugxtnduvg Visit Summary SENAITYORDAN DuranYARA Davey :1995 Visit Date:11/20/2023 Ambulatory Visit Instructions Your Diagnosis Pain in joints Encounter to establish care BMI 45.0-49.9, adult Your Care Team Attending Physician - STEFAN GALVAN CNP Primary Care Physician - STEFAN GALVAN CNP Discharge Vitals Temperature (Temporal Artery) 36.7 [...] you for choosing us for your care. NormalMercy Health Fairfield HospitalCBC w/ Auto Diffon 11-20-2023 Basophils/100 WBC (Bld)0.5 %Normal0.0-2.0Mer[facility] HospitalComment on above:Performed By: #### [id number] #### [facility] [address] [place] [address]Bnpphqzhg/Leukocytes Auto (Bld) [Pure # fraction]0.0 E9/LNormal 0.0-0.2FCincinnati Children's Hospital Medical CenterComment on above:Performed By: #### [id number] #### [facility] [address] [place] [address]Chblnfvxpfh (Bld) [#/Vol]0.1 E9/LNormal0.0-0.5FCincinnati Children's Hospital Medical CenterComment on above:Performed By: #### [id number] #### [facility] [address] [place] [address]Qvbwlmjwapz/100 WBC (Bld)1.3 %Normal0.0-8.0Mer[facility] HospitalComment on above:Performed By: #### [id number] #### [facility] [address] [place] [address]Tncsiuvzkac distribution width (RBC) [Ratio]12.7 %Normal 10.9-14.2FCincinnati Children's Hospital Medical CenterComment on above:Performed By: #### [id number] #### [facility] [address] [place] [address]Ncribrzjch (Bld) [Volume fraction]47.6 %Nomgio22.7-49.0Mer[facility] HospitalComment on above:Performed By: #### [id number] #### [facility] [address] [place] [address]Oauhdffwyx (Bld) [Mass/Vol]16.6 g/oNJezhhg99.5-17.5FCincinnati Children's Hospital Medical CenterComment on above:Performed By: #### [id number] #### [facility] [address] [place] [address] 365[address]Zxsajloooju (Bld) [#/Vol]3.0 E9/LNormal1.0-4.0Mer[facility] HospitalComment on above:Performed By: #### [id number] #### [facility] [address] [place] [address]Emgsifjuwbi/100 WBC (Bld)36.9 %Sbqvxh51.0-50.0Mer[facility] HospitalComment on above:Performed By: #### [id number] #### [facility] [address] [place] [address]87[address]WVN (RBC) [Entitic mass]30.8 crAobfei15.0-34.0Mer[facility] HospitalComment on above:Performed By: #### [id number] #### [facility] [address] [place] [address]LSHU (RBC) [Mass/Vol]34.9 g/wXCunlel80.4-36.0Mer[facility] HospitalComment on above:Performed By: #### [id number] #### [facility] [address] [place] [address]99[address]RBY (RBC) [Entitic vol]88.2 jVZrbwtz91.0-100.0Mer[facility] HospitalComment on above:Performed By: #### [id number] #### [facility] [address] [place] [address]Eydzelbcy (Bld) [#/Vol]0.8 E9/LNormal0.2-1.0Mer[facility] HospitalComment on above:Performed By: #### [id number] #### [facility] [address] [place] [address] 20773Ssgkjrhwcoa (Bld) [#/Vol]4.2 E9/LNormal2.0-7.5FCincinnati Children's Hospital Medical CenterComment on above:Performed By: #### [id number] #### [facility] [address] [place] [address]Deuukefkmmx/100 WBC (Bld)51.2 %Rkjqwt09.0-75.0Mer[facility] HospitalComment on above:Performed By: #### [id number] #### [facility] [address] [place], [place] [address]Zqgkjpdt091.0 E9/SArtyda618.0-500.0[facility] Comment on above:Performed By: #### [id number] #### [facility] [address] [place], [place] [address]Ervsfilp mean volume (Bld) [Entitic vol]7.5 fLNormal6.4-10.8 [facility] HospitalComment on above:Performed By: #### [id number] #### [facility] [address] [place] [address]GJR (Bld) [#/Vol]5.4 E12/LNormal4.3-5.9Mer[facility] HospitalComment on above:Performed By: #### [id number] #### [facility] [address] [place] [address]QUT corrected for nucl RBC Auto (Bld) [#/Vol]8.2 E9/LNormal 4.0-11.0Mer[facility] HospitalComment on above:Performed By: #### [id number] #### [facility] [address] [place] [address]SOFKIFXIFPkrclzh By: SYSTEM SYSTEM on 57-71-0352Lcaphfc [Mass/Vol]4.7 g/dLNormal3.3 - 5.0 gm/dLRemisol ChemAlbumin/Globulin [Mass ratio] 1.3 {ratio}Normal1.1 - 2.2Remisol ChemALP [Catalytic activity/Vol]43 [iU]/d Lqoiso01 - 98 Int._Unit/LRemisol ChemALT No additional P-5'-P [Catalytic activity/Vol]45 [iU]/dNormal6 - 46 Int._Unit/LRemisol ChemAnion gap [Moles/Vol] 15 mmol/LNormal6 - 16 mEq/LRemisol ChemAST [Catalytic activity/Vol]24 [iU]/d Normal5 - 43 Int._Unit/LRemisol ChemBilirubin [Mass/Vol]0.8 mg/dLNormal0.0 - 1.1 mg/dLRemisol ChemCalcium [Mass/Vol]9.9 mg/dLNormal8.9 - 11.1 mg/dLRemisol Chem Chloride [Moles/Vol]104 mmol/BOwpprq177 - 111 mmol/LRemisol ChemCO2 [Moles/Vol] 24 mmol/AIbevhb91 - 31 mmol/LRemisol ChemCreatinine [Mass/Vol]0.9 mg/dLNormal0.5 - 1.3 mg/dLRemisol ChemCRP [Mass/Vol]1.6 mg/dLNormal<=1.9mg/dLRemisol ChemeGFR 119 mL/min/1.73 g5Hxdabk>=59mL/min/1.73 s6Pxvmhrc ChemFree T4 [Mass/Vol]0.72 ng/dLNormal0.58 - 1.64 ng/dLRemisol ChemGlobulin (S) [Mass/Vol]3.5 g/dLNormal1.4 - 4.0 gm/dLRemisol ChemGlucose [Mass/Vol]82 mg/aFWhbnzq38 - 199 mg/dLRemisol ChemPotassium [Moles/Vol]3.9 mmol/LNormal3.5 - 5.3 mmol/LRemisol ChemProtein [Mass/Vol]8.2 g/dLHigh6.0 - 7.8 gm/dLRemisol ChemSodium [Moles/Vol]139 mmol/L Jixufn931 - 145 mmol/LRemisol ChemTSH Qn5.88 m[IU]/LHigh0.34 - 5.60 mcIU/mL Remisol ChemUrea nitrogen [Mass/Vol]15 mg/dLNormal5 - 21 mg/dLRemisol ChemUrea nitrogen/Creatinine [Mass ratio]17 mg/sxLegogh32 - 20Remisol ChemCMPon 44-71-6179Syfvryj [Mass/Vol]4.7 g/dLNormal3.3-5.0[facility] Comment on above:Performed By: #### [id number] #### [facility] [address] [place], [place] [address]Jiebqxl/Globulin (S) [Mass conc ratio]1.0Wrjbus3.1-2.2FCincinnati Children's Hospital Medical CenterComment on above:Performed By: #### [id number] #### [facility] [address] [place], [place] [address]BTN [Catalytic activity/Vol]43 Int._Unit/VVqwqca81-55DjyntqMercy Health Fairfield HospitalComment on above:Performed By: #### [id number] #### [facility] [address] [place], [place] [address]ZWZ No additional P-5'-P [Catalytic activity/Vol]45 Int._Unit/L Normal6-46Mer[facility] Fairfield HospitalComment on above:Performed By: #### [id number] #### [facility] [address] [place], [place] [address]Jnjuc gap [Moles/Vol]15 mmol/LNormal6-16Mer[facility] HospitalComment on above:Performed By: #### [id number] #### [facility] [address] [place], [place] [address]YLT [Catalytic activity/Vol]24 Int._Unit/LNormal5-43Mer[facility] HospitalComment on above:Performed By: #### [id number] #### [facility] [address] [place], [place] [address]Lbujpdnnb [Mass/Vol]0.8 mg/dLNormal0.0-1.1FCincinnati Children's Hospital Medical CenterComment on above:Performed By: #### [id number] #### [facility] [address] [place], [place] [address]Erdpbhb [Mass/Vol]9.9 mg/dLNormal8.9-11.1FCincinnati Children's Hospital Medical CenterComment on above:Performed By: #### [id number] #### [facility] [address] [place], [place] [address]Royzymiy [Moles/Vol]104 mmol/ZGnlktv407-730FalhhuMercy Health Fairfield HospitalComment on above:Performed By: #### [id number] #### [facility] [address] [place], [place] [address]JA8 [Moles/Vol]24 mmol/UEoeuuu51-15IpqhsxMercy Health Fairfield Hospital Comment on above:Performed By: #### [id number] #### [facility] [address] [place], [place] [address]Ggpyydnirm [Mass/Vol]0.9 mg/dLNormal0.5-1.3FCincinnati Children's Hospital Medical CenterComment on above:Performed By: #### [id number] #### [facility] [address] [place], [place] [address]Pwwayvoq (S) [Mass/Vol]3.5 g/dLNormal1.4-4.0Mer[facility] HospitalComment on above:Performed By: #### [id number] #### [facility] [address] [place], [place] [address]Snxdaqa [Mass/Vol]82 mg/oJPhskea56-701RvgfzpMercy Health Fairfield HospitalComment on above:Performed By: #### [id number] #### [facility] [address] [place], [place] [address]Mnisifhws [Moles/Vol]3.9 mmol/LNormal3.5-5.3FCincinnati Children's Hospital Medical CenterComment on above:Performed By: #### [id number] #### [facility] [address] [place], [place] [address]Fvgefbr [Mass/Vol]8.2 g/dLHigh6.0-7.8Mer[facility] HospitalComment on above:Performed By: #### [id number] #### [facility] [address] [place], [place] [address]Ldksuq [Moles/Vol]139 mmol/UXcnsrp421-656RhmtpnMercy Health Fairfield HospitalComment on above:Performed By: #### [id number] #### [facility] [address] [place], [place] [address]Obtm nitrogen [Mass/Vol]15 mg/dLNormal5-21Mer[facility] HospitalComment on above:Performed By: #### [id number] #### [facility] [address] [place], [place] [address]Gqfk nitrogen/Creatinine [Mass ratio]17 No RkqavOoipsz11-20 [facility] HospitalComment on above:Performed By: #### [id number] #### [facility] [address] [place], [place] [address]VYObz 16-92-3006WLL [Mass/Vol]1.6 mg/dLNormal<=1.9Mer[facility] HospitalComment on above:Performed By: #### [id number] #### [facility] [address] [place], [place] [address]Xrqgkd Medicine Office/Clinic Noteon 24-84-6284Gxsgjb Medicine Office/Clinic NoteI Staff Arnold is a 28 year old male presenting [facility] Establish Care: History: Any previous diagnosis: [...] right wrist and is about a 6/10 alsogets a rash while he is having flair [...] and now in his right wrist. He reportshe has tried OTC ibuprofen but that really [...] bruising tendency, no petechiae, no swollen nodes Allergy/Immunologic: no seasonal allergies, no food allergies, no recurrent infections, no impairedimmunity Additional ROS info: Except as noted in [...] Diff Comprehensive Metabolic Panel Lab Specimen Collect 04319 Rheumatoid Factor Quantitative Sedimentation Rate Automated TSH With T4fr Reflex Uric Acid 2. Encounter to establish care (Z76.89: Persons encountering health services in other specified circumstances) Ordered: Lab Specimen Collect 79465 3. BMI 45.0-49.9, adult (Z68.42: Body mass index [BMI] 45.0-49.9, adult) The standard range for ages 18 and older is >=18.5 and < 25 kg/m2. Your BMI today was above this range, this falls in the overweight to obese category and there are medical benefits to weight loss. We can offer counselling, referral, and/or medical support in addressing this problem. Your BMIand weight management will be followed at subsequent visits. Ordered: RIMMA w/Reflex if POS C-Reactive Protein CBC w/ Auto Diff Comprehensive Metabolic Panel Lab Specimen Collect [id number] Rheumatoid Factor Quantitative Sedimentation Rate Automated TSH With T4fr Reflex Follow-up With When Contact Information STEFAN GALVAN CNP, FAM Within [address] [place], [place] [id number] Business (1) Additional Instructions (more content not included)...NormalMercy Health Fairfield HospitalComment on above:Result Comment: Electronically Signed By: STEFAN GALVAN CNP\.br\Date and Time Signed: 11/20/23 13:51 EDTFree T4on 09-28-0307Lqpy T4 [Mass/Vol]0.72 ng/dLNormal0.58-1.64Mer[facility] HospitalComment on above: Performed By: #### [id number] #### [facility] [address] [place], [place] [address]JIGNTQMYXDRjrhwsx By: SYSTEM SYSTEM on 30-86-9719Vpxrmlvqk/100 WBC (Bld)0.5 %Normal0.0 - 2.0 %Remisol HemeBasophils/Leukocytes Auto (Bld) [Pure # fraction]0.0 E9/LNormal0.0 - 0.2 E9/LRemisol HemeEosinophils (Bld) [#/Vol]0.1 E9/LNormal0.0 - 0.5 E9/LRemisol HemeEosinophils/100 WBC (Bld)1.3 %Normal0.0 - 8.0 %Remisol HemeErythrocyte distribution width (RBC) [Ratio]12.7 %Qytwhu02.9 - 14.2 %Remisol HemeHematocrit (Bld) [Volume fraction]47.6 %Lpnepn69.7 - 49.0 % Remisol HemeHemoglobin (Bld) [Mass/Vol]16.6 g/mAQdtdvo28.5 - 17.5 gm/dLRemisol HemeLymphocytes (Bld) [#/Vol]3.0 E9/LNormal1.0 - 4.0 E9/LRemisol Heme Lymphocytes/100 WBC (Bld)36.9 %Zrfupi16.0 - 50.0 %Remisol HemeMCH (RBC) [Entitic mass]30.8 gvCsbocj21.0 - 34.0 pgRemisol HemeMCHC (RBC) [Mass/Vol]34.9 g/dL Owzyly93.4 - 36.0 gm/dLRemisol HemeMCV (RBC) [Entitic vol]88.2 gRRfqjok41.0 - 100.0 fLRemisol HemeMonocytes (Bld) [#/Vol]0.8 E9/LNormal0.2 - 1.0 E9/LRemisol HemeMonocytes/100 WBC (Bld)10.1 %Normal4.0 - 14.0 %Remisol HemeNeutrophils (Bld) [#/Vol]4.2 E9/LNormal2.0 - 7.5 E9/LRemisol HemeNeutrophils/100 WBC (Bld)51.2 % Litobl29.0 - 75.0 %Remisol WogcFhvxfioe845.0 E9/HOehpml835.0 - 500.0 E9/LRemisol HemePlatelet mean volume (Bld) [Entitic vol]7.5 fLNormal6.4 - 10.8 fLRemisol HemeRBC (Bld) [#/Vol]5.4 E12/LNormal4.3 - 5.9 E12/LRemisol HemeWBC corrected for nucl RBC Auto (Bld) [#/Vol]8.2 E9/LNormal4.0 - 11.0 E9/LRemisol HemeHEMATOLOGY Ordered By: Jayne Kiel on 82-09-6069XUV (Bld) [Velocity]14 mm/hNormal0 - 19 mm/[facility] HemeAutoSSPatient Educationon 92-57-6634Emsdqyq EducationOrthopedics Joint Pain Joint pain can be caused [...] is especially important if you are unable tofeel pain, heat, or cold. You may have [...] bath or shower. General instructions ? Take xiyf-gpt-haodmls and prescription medicines only as told by your doctor. This may include medicines taken by mouth or applied to the skin. ? Do not smoke or use any products that contain nicotine or tobacco. If you need help quitting, askyour doctor. ? Keep all follow-up visits as [...] or make your pain worse. ? Take rvae-ddp-qistcra and prescription medicines only as told by your doctor. This information is not intended to replace advice given to you by your health care provider. Make sure you discuss any questions you have with your health care provider. Document Revised: 09/08/2020 Document Reviewed: 09/08/2020 [employer] Patient Education ? 2022 [employer]NormalMercy Health Fairfield Hospital Sed Rate Automatedon 31-18-1830IQZ (Bld) [Velocity]14 mm/hNormal0-19Mer[facility] Fairfield HospitalComment on above:Performed By: #### [id number] #### [facility] [address] [place], [place] [address]MKP With T4fr Reflexon 55-86-9754LXQ Qn5.88 m[IU]/LHigh 0.34-5.60[facility]field HospitalComment on above:Performed By: #### [id number] #### [facility] [address] [place], [place] [address]pAZFuj 98-50-2898vEJP059 mL/min/1.73 t0Brmgvt>=59Mercy Health Fairfield HospitalComment on above:Order Comment: Order added by Discern Expert. Performed By: #### [id number] #### [facility] [address] [place], [place] [address]Jvcjf-13 PCR (CVDCARDINAL CUSHING H[facility]PITAL)on 44-46-4604Efufj PCRNOT DETECTED NormalNOT DETECTEDCoshocton Regional Medical CenterComselect specialty hospital-[place] on above:Result Comment: This test is not yet approved or cleared by the [place] FDA. When there are no FDA-approved or cleared tests available, and other criteria are met, FDA can make tests available under an emergency access mechanism called an Emergency Use Authorization (EUA). The EUA for this test is supported by the Donor Services Team Leader of Health and Human Service's (HHS's) declaration [...] which the test may no longer be used).Performed By: #### CVDTBH #### [facility] [address] [place], [place] [address] Jeancarlos Rivera [facility] Beach[facility] Medical CenterComment on above: Result Comment: This test is not yet approved or cleared by the [place] FDA. When there are no FDA-approved or cleared tests available, and other criteria are met, FDA can make tests available under an emergency access mechanism called an Emergency Use Authorization (EUA). The EUA for this test is supported by the Donor Services Team Leader of Health and Human Service?s (HHS?s) declaration [...] the context of a patients recent exposures andthe presence of clinical signs and symptoms consistent with SARS-CoV-2.Performed By: #### CVDTB #### [facility] [address] [address] Jeancarlos Leo Encounters Encounter DateEncounter TypeCare ProviderFacilityStart: 01-10-2024 End: 74-12-2347Ougqyfo encounter procedureFNP-BC Stefan Galvan Work Phone: [facility] [address] Work Phone: Start: 01-10-2024 End: 78-84-8620vxuvgknmyvNAI-BC Stefan A Mandy Work Phone: [facility] Work Phone: Start: 11-20-2023 End: 27-61-9470Xpi Drop offSHELLY A MANDY [facility] Start: 11-20-2023 End: 77-90-3277arstfcxszeLNAIUO A LEHMANNFacility:FTMCStart: 11-19-2023 ambulatorySHELLY LEHMANNFacility:[facility] BellevueStart: 06-15-2020 End: 39-10-9796Ufvaptm encounter procedureKIM E KNIGHTFacility:H1 Procedures DateProcedureProcedure DetailPerforming ClinicianStart: 93-03-7749Xzkmg X-ray of bilateral handsFNP-JULIETTE Galvan Work Phone: Start: 95-04-8301Adqsz X-ray of bilateral wristsFNP-BC Stefan Mandy Work Phone: Plan of Treatment DateCare ActivityDetailAuthorStart: 79-64-6726PqzhvwplpSumma Health [facility] Homogenous nuclear Ab pattern [Titer] in SerumSumma Health Wad[facility] Nuclear Ab [Titer] in SerumSumma Health Wadsworth - Rittman Medical CenterReagin Ab [Presence] in Serum by [facility] Memorial HospitalThyroglobulin Ab [Units/volume] in Serum or PlasmaSumma Health Wadsworth - Rittman Medical CenterThyroperoxidase Ab [Units/volume] in Serum or PlasmaSumma Health Wadsworth - [facility] Immunizations Immunization DateImmunizationNotesCare EftuskolLsrzajmw67-84-9838GJVM-RsM-7 (COVID-19) mRNA BNT-162b2 vaxSHELLY MANDY [phone]-CqdlfMckitrick Hospital 85-29-2459IKDT-CoV-2 (COVID-19) mRNA BNT-162b2 vaxSHELLY MANDY 359-3044Schmox-PwfciMckitrick Hospital 51-49-2369ZOcF, unspecified formulationSHELLY MANDY 722-7705Ltwixx-TecjoMckitrick Hospital 60-35-3985verrtqw, mumps and rubella virus vaccineSHELLY MANDY 005-1211Tksjrc-EvrybMckitrick Hospital 92-15-0740fomwsoistq vaccine, unspecified formulationSHELLY MANDY 419-7880Auiszi-OyqtiMckitrick Hospital 39-31-3039NHqY, unspecified formulationSHELLY MANDY 970-1395Hsgkew-FkmvfMckitrick Hospital 30-57-9005DTyO, unspecified formulationSHELLY MANDY 951-7381Ehbhoz-FfjzxMckitrick Hospital 78-92-8608yvnihfqab B vaccine, pediatric or pediatric/adolescent dosageSHELLY MANDY 479-0602Chmofz-XidzfMckitrick Hospital 15-43-3997Qrc, unspecified formulationSHELLY MANDY 634-1327Finkhm-RnseqMckitrick Hospital 09-77-3845kfbxnvj, mumps and rubella virus vaccineSHELLY MANDY 393-0111Dxwatc-WkuvzMckitrick Hospital 79-85-6811PLZ-HibSHSANAM MANDY 956-8761Akuvzq-FaszoMckitrick Hospital 90-29-8298UPZ-HibSANAM MANDY 207-3490Xtueje-QkbnkMckitrick Hospital 84-14-2756qqyqnjghd B vaccine, pediatric or pediatric/adolescent dosageSHELLY MANDY 463-6886Sozevy-VpqltMckitrick Hospital 10-96-6391rkhadakvx B vaccine, pediatric or pediatric/adolescent dosageSHELLY MANDY 398-2901Sebssx-RqevhMckitrick Hospital Payers DatePayer CategoryPayerPolicy [id number] Health [id number] [id number] Social History DateTypeDetailFacilityStart: 31-48-9701Ziwnmcx smoking statusNever smoked tobacco (finding)[facility]itrick HospitalTobacco smoking statusNeverSelect Medical [facility], [facility] Hospitaltart: 17-40-5106Ews Assigned At [facility] Evaluation + Plan note 11-20-2023 Note Date & EvkcIryzQkwgksbm63-72-7495 Evaluation + Plan note Diagnostic Tests Pending * RIMMA w/Reflex if POS 11/20/23 * Rheumatoid Factor Quantitative 11/20/23 Future Scheduled Tests Laboratory* Uric Acid 11/20/23 [facility] Evaluation note Note Date & TypeNoteFacilityEvaluation noteNo assessment information available [facility] Work Phone: Hospital course Narrative Note Date & TypeNoteFacilityHospital course Narrative No data available for this section [facility] Hospital Discharge instructions Note Date & TypeNoteFacilityHospital Discharge instructions No data available for this section [facility] Progress note Note Date & TypeNoteFacilityProgress note No data available for this section [facility] Summary Purpose Family History No Family History [...] section and content) DATE CREATED AUTHOR 06/18/2020 [facility] DATE CREATED AUTHOR AUTHOR'S ORGANIZ ATION 11/21/2023 [facility] DATE CREATED AUTHOR AUTHOR'S ORGANIZ ATION 11/23/2023 [facility] DATE CREATED AUTHOR AUTHOR'S ORGANIZ ATION 11/26/2023 [facility] DATE CREATED AUTHOR AUTHOR'S ORGANIZ ATION 01/20/2024 [facility] Patient Care team informatio n (unrecognized section and content) Team Status: Active Member Role Status Dates DAYNE Grant-JULIETTE Primary Care Provider Active Team Status: Inactive Member Role Status Dates Arnold Yates MD Attending Provider Active St art: January 10, 2024 End: January 10, 2024Stefan Galvan [facility] Care ProviderActiveStart: January 10, 2024 End: January 10, 2024 [...] BE BASED ON THE PRIMARY CLINICAL RECORDS. [employer] [facility]. provides no warranty or guarantee of the accuracy or completeness of information in this document.
[2025-04-09 10:43] LABS: Alanine Aminotransferase 48 U/L (16-63); Albumin Globulin Ratio 1.1; Albumin Level 4.2 g/dL (3.4-5.0); Alkaline Phosphatase 51 U/L (46-116); Anion Gap 13.7; Aspartate Amino Transferase 19 U/L (15-37); Blood Urea Nitrogen 18.0 mg/dL (7.0-18.0); Calcium 9.8 mg/dL (8.5-10.1); Carbon Dioxide 29.6 mmol/L (21.0-32.0); Chloride 103 mmol/L (98-107); Estimated GFR (African America >60 (>=60 mL/min/1.73m^2); Estimated GFR (Non-African Ame >60 (>=60 mL/min/1.73m^2); Globulin 3.8 g/dL; Glucose 104 mg/dL (74-106); Potassium 4.3 mmol/L (3.5-5.1); Sodium 142 mmol/L (136-145); Total Protein 8.0 g/dL (6.4-8.2)
[2025-04-09 10:54] LABS: Hematocrit 47.2 % (42.0-54.0); Hemoglobin 15.9 g/dL (14.0-18.0); Immature Granulocytes Abs Auto 0.03 10^3/uL (0.00-0.03); Immature Granulocytes Pct Auto 0.4 % (0.0-0.5); Lymphocytes Absolute Auto 2.7 10^3/uL (1.2-3.8); Mean Corpuscular HGB Conc 33.7 g/dL (29.9-35.2); Mean Corpuscular Hemoglobin 29.2 pg (25.9-34.0); Mean Corpuscular Volume 86.6 fL (80.0-94.0); Platelet Count 317 10^3/uL (150-450); Red Blood Count 5.45 10^6/uL (4.70-6.10); White Blood Count 8.2 10^3/uL (4.0-11.0)
== END 2025-04-09 09:54 | disposition home or self-care (01) ==
LOC: LAB 09:54
PROVIDERS: PCP Nurse Practitioner; Visit Provider Internal Medicine Rheumatology
DX: M06.9 Rheumatoid arthritis, unspecified (principal); Z51.81 Encounter for therapeutic drug level monitoring
CPT/HCPCS: 36415; 80053; 85025; 85652